=== PATIENT | female | born 1965 | race Caucasian/White ===

== ENCOUNTER 2017-05-17 10:43 | Day surgery (SDC) | payer OTHER ==
[2017-05-17] MEDS ORDERED: XYLOCAINE 1 % (PLAIN) ONE (11:52)
[2017-05-17] MEDS ORDERED: KENALOG INJ 40 MG ONE (11:53)
[2017-05-17] MEDS ORDERED: CELESTONE SOLUSPAN ONE (11:53)
[2017-05-17 13:16] VITALS: BP 121/80
== END 2017-05-17 13:10 | disposition home or self-care (01) ==
LOC: SURG1 10:43
PROVIDERS: ATTEND Orthopaedic Surgery
PROC: 3E0U3BZ Introduction of Anesthetic Agent into Joints, Percutaneous Approach (ICD-10-PCS; principal; 2017-05-17 11:00)
DX: M25.551 Pain in right hip (principal); M16.11 Unilateral primary osteoarthritis, right hip
CPT/HCPCS: 20610; 76000; 77002; J2001; J3301

== ENCOUNTER → 2017-06-20 | Outpatient (CLI) | payer OTHER ==
--- NOTE | 2017-06-22 12:57 | RAD ---
HISTORY: Preoperative exam for hip replacement Study: Two views of the chest Comparison: None Findings: The patient is rotated. The cardiac silhouette is unremarkable. Interstitial changes are noted with out evidence of focal consolidation. Postoperative changes of the cervical spine are noted. IMPRESSION: 1. No acute cardiopulmonary disease. Reported By:
--- NOTE | 2017-06-22 13:39 | RAD ---
HISTORY: Preop for right hip replacement. Study: Two views of the right hip. Comparison: None. 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 Patient is status post ORIF of a remote left femur fracture with associated marisol te and screw fixation. The visualized hardware appears intact. Remaining osseous structures appear in tact. Vascular coils are seen overlying the pelvis. Partially visualized screws overlying the right m id femur. IMPRESSION: Chronic findings as above. Reported By:
== END ==
LOC: LAB 13:47
PROVIDERS: ATTEND Orthopaedic Surgery
DX: Z01.818 Encounter for other preprocedural examination (principal); Z01.810 Encounter for preprocedural cardiovascular examination; Z01.811 Encounter for preprocedural respiratory examination; Z79.899 Other long term (current) drug therapy; Z11.8 Encounter for screening for other infectious and parasitic diseases; Z79.01 Long term (current) use of anticoagulants; M16.31 Unilateral osteoarthritis resulting from hip dysplasia, right hip
CPT/HCPCS: 71020; 73501; 93005; 93010

== ENCOUNTER → 2017-06-21 | Outpatient (CLI) | payer OTHER | LOC: LAB 15:48 | PROVIDERS: ATTEND Orthopaedic Surgery | DX: Z01.818 Encounter for other preprocedural examination (principal); Z79.899 Other long term (current) drug therapy; Z11.8 Encounter for screening for other infectious and parasitic diseases; Z79.01 Long term (current) use of anticoagulants; M16.31 Unilateral osteoarthritis resulting from hip dysplasia, right hip | CPT/HCPCS: 36415; 80053; 81001; 85025; 85610; 85652; 85730; 86140; 86850; 86900; 86901; 87640; 87641 ==

== ENCOUNTER 2017-06-26 09:00 | Inpatient (IN) | payer OTHER ==
[2017-06-21 16:24] LABS: BILIRUBIN,URINE NEGATIVE (NEGATIVE); BLOOD/HEMOGLOBIN,URINE NEGATIVE (NEGATIVE); GLUCOSE, URINE NEGATIVE (NEGATIVE); KETONES,URINE NEGATIVE (NEGATIVE); LEUKOCYTE ESTERASE ,URINE 1+ (NEGATIVE); NITRITES,URINE NEGATIVE (NEGATIVE); PROTEIN,URINE NEGATIVE (NEGATIVE); UROBILINOGEN,URINE 1+ (NORMAL)
[2017-06-21 16:27] LABS: BASOPHILS % (AUTO) 0.5 % (0.2-1.0); EOSINOPHILS # (AUTO) 0.1 x10^3/uL (0.0-0.2); EOSINOPHILS % (AUTO) 1.1 % (0.9-2.9); HEMATOCRIT 39.6 % (36.0-47.0); HEMOGLOBIN 14.1 g/dL (12.0-16.0); LYMPHOCYTES # (AUTO) 1.3 X10^3/uL (1.3-2.9); LYMPHOCYTES % (AUTO) 28.8 % (21.0-51.0); MEAN CORPUSCULAR HEMOGLOBIN 30.8 pg (27.0-34.0); MEAN CORPUSCULAR HGB CONC 35.7 g/dL (33.0-35.0); MEAN CORPUSCULAR VOLUME 86.2 fL (80.0-100.0); MEAN PLATELET VOLUME 7.8 fL (7.4-11.0); MONOCYTES # (AUTO) 0.3 x10^3/uL (0.3-0.8); MONOCYTES % (AUTO) 6.4 % (0.0-13.0); NEUTROPHILS # (AUTO) 2.9 x10^3/uL (2.2-4.8); NEUTROPHILS % (AUTO) 63.2 % (42.0-75.0); PLATELET COUNT 254 X10^3/uL (150.0-450.0); RED CELL DISTRIBUTION WIDTH 12.8 % (11.6-16.5); WHITE BLOOD COUNT 4.6 X10^3/uL (3.6-10.0)
[2017-06-21 16:32] LABS: APPEARANCE,URINE HAZY (CLEAR); BACTERIA,URINE TRACE /HPF (NEGATIVE); COLOR,URINE YELLOW (YELLOW); RBC,URINE 0-2 /HPF (NEGATIVE); SQUAMOUS EPITHELIAL CELL,UR RARE /HPF (NEGATIVE)
[2017-06-21 16:34] LABS: MUCUS,URINE FEW /HPF (NEGATIVE)
[2017-06-21 16:39] LABS: ALANINE AMINOTRANSFERASE 41 Units/L (12-78); ALKALINE PHOSPHATASE 196 Units/L (46-116); ASPARTATE AMINO TRANSFERASE 38 Units/L (15-37); BLOOD UREA NITROGEN 11 mg/dL (7-18); CALCIUM 9.3 mg/dL (8.5-10.1); CARBON DIOXIDE 28.8 mmol/L (21-32); CHLORIDE 104 mmol/L (98-107); CREATININE 0.77 mg/dL (0.55-1.02); SODIUM 141 mmol/L (136-145); eGFR BLACK RACES > 60 (>60); eGFR NON BLACK RACES > 60 (>60)
[2017-06-21 17:08] LABS: ERYTHROCYTE SEDIMENTATION RATE 20 MM/HOUR (0-20)
[2017-06-26] MEDS ORDERED: D5 LR 1000 ML 1,000 ML IV ONE (10:42)
[2017-06-26] MEDS ORDERED: XYLOCAINE 2% and EPINEPHRINE 1:100,000 ONE (11:16)
[2017-06-26] MEDS ORDERED: CLEOCIN VIAL 600 MG ONE (11:31)
[2017-06-26] MEDS ORDERED: NS 100 ML IV 100 ML IV ONE (11:31)
[2017-06-26] MEDS ORDERED: FENTANYL INJ 100 mcg ONE (11:35)
[2017-06-26] MEDS: HYDROGEN PEROXIDE 3% ONE ×2 (11:39→18:27)
[2017-06-26] MEDS ORDERED: LR 1000 ML IV 1,000 ML IV ONE ×2 (11:54→12:13)
[2017-06-26] MEDS ORDERED: BACTROBAN OINT ONE (12:14)
--- NOTE | 2017-06-26 14:09 | RAD ---
Indication: Right hip replacement. Exam: AP pelvis and right hip. Comparison: 06/20/2017. Findings: The right femoral head has been surgically resected and there is a prosthetic device in the right hip with the acetabular portion of the prosthesis in good position. There are surgical fixatio n devices along the midshaft of the right femur and proximal left femoral shaft . There is flattening deformity of left femoral head which is unchanged. There are surgical embolization coils in the pelv is which are unchanged. Impression: Status post total right hip replacement with no acute abnormality seen. Postop changes along both femurs and congenital deformity of the left hip. Extensive embolization coils throughout the pelvis which are unchanged. Reported By:
[2017-06-26] MEDS ORDERED: MARCAINE 0.25% INJ ONE (14:24)
[2017-06-26] MEDS ORDERED: NEO-SYNEPHRINE INJ ONE ×2 (14:47→17:22)
[2017-06-26] MEDS ORDERED: DIPRIVAN VIAL ONE (14:47)
[2017-06-26] MEDS ORDERED: VERSED ONE (14:47)
[2017-06-26] MEDS ORDERED: EPHEDRINE SULFATE INJ ONE (14:47)
[2017-06-26] MEDS: NS 500 ML IV 500 ML IV ONE (14:51)
[2017-06-26] MEDS ORDERED: NS IRRIGATION IR ONE ×2 (15:00)
[2017-06-26] MEDS ORDERED: BACITRACIN IR ONE ×2 (15:00)
[2017-06-26] MEDS ORDERED: DIPRIVAN VIAL 20 ML ONE (15:43)
[2017-06-26] MEDS ORDERED: MORPHINE SULFATE PCA 30 MG IV PRN (16:43)
[2017-06-26] MEDS ORDERED: BENADRYL INJ 50 MG VIAL IVP PRN (16:54)
[2017-06-26] MEDS ORDERED: ZOFRAN INJ 4 MG VIAL IVP PRN (16:54)
[2017-06-26] MEDS ORDERED: DILAUDID INJ IVP PRN (16:54)
[2017-06-26] MEDS ORDERED: REGLAN INJ 10 MG VIAL IVP PRN (16:54)
[2017-06-26] MEDS ORDERED: NS 500 ML IV 500 ML IV ONE (17:22)
[2017-06-26 17:25] LABS: HEMATOCRIT 34.7 % (36.0-47.0); HEMOGLOBIN 12.1 g/dL (12.0-16.0)
--- NOTE | 2017-06-26 18:11 | RAD ---
History: Postop right hip Study: AP and cross-table lateral right hip Comparison: June 20 Findings: There is a new right hip prosthesis is well seated in good position. There are subcutaneous jah in place laterally. There is a surgical drain in place. Partially visualized is a mid right femoral diaphyseal sideplate and screws. There is an incomplete f racture just above the side-plate and distal to the stem of the right hip prosthesis. Impression: 1. Satisfactory appearance of the right total hip prosthesis 2. Incomplete fracture of the femoral diaphysis below the stem of the prosthesis and immediately abov e a sideplate and screws in the femoral diaphysis Reported By:
[2017-06-26] MEDS: NEO-SYNEPHRINE INJ 30 MG in NS 500 ML IV 500 ML IV PRN (18:12)
[2017-06-26] MEDS: LR 1000 ML IV 1,000 ML IV SCH (18:27)
[2017-06-26] MEDS: DILAUDID INJ IVP PRN (19:35)
[2017-06-26] MEDS: VANCOMYCIN HCL 500 MG VIAL 500 MG in NS 100 ML IV + SPIKE MINIBAG* 100 ML IV SCH (20:08)
[2017-06-27] MEDS: DILAUDID INJ IVP PRN ×5 (01:20→22:06)
[2017-06-27] MEDS: ZOFRAN INJ 4 MG VIAL IVP PRN (04:55)
[2017-06-27 05:22] LABS: BASOPHILS % (AUTO) 0.2 % (0.2-1.0); HEMATOCRIT 29.5 % (36.0-47.0); HEMOGLOBIN 10.7 g/dL (12.0-16.0); LYMPHOCYTES # (AUTO) 1.4 X10^3/uL (1.3-2.9); LYMPHOCYTES % (AUTO) 12.8 % (21.0-51.0); MEAN CORPUSCULAR HEMOGLOBIN 30.6 pg (27.0-34.0); MEAN CORPUSCULAR HGB CONC 36.2 g/dL (33.0-35.0); MEAN CORPUSCULAR VOLUME 84.5 fL (80.0-100.0); MEAN PLATELET VOLUME 7.9 fL (7.4-11.0); MONOCYTES # (AUTO) 0.9 x10^3/uL (0.3-0.8); MONOCYTES % (AUTO) 8.3 % (0.0-13.0); NEUTROPHILS # (AUTO) 8.8 x10^3/uL (2.2-4.8); NEUTROPHILS % (AUTO) 78.7 % (42.0-75.0); PLATELET COUNT 239 X10^3/uL (150.0-450.0); RED BLOOD COUNT 3.49 X10^6/uL (3.5-5.4); RED CELL DISTRIBUTION WIDTH 14.4 % (11.6-16.5); WHITE BLOOD COUNT 11.2 X10^3/uL (3.6-10.0)
[2017-06-27 05:26] LABS: BLOOD UREA NITROGEN 8 mg/dL (7-18); CALCIUM 8.2 mg/dL (8.5-10.1); CARBON DIOXIDE 28.1 mmol/L (21-32); CHLORIDE 106 mmol/L (98-107); COR NA(FOR HYPERGLY) 140 mmol/L (136-145); CREATININE 0.68 mg/dL (0.55-1.02); SODIUM 139 mmol/L (136-145); eGFR BLACK RACES > 60 (>60); eGFR NON BLACK RACES > 60 (>60)
[2017-06-27] MEDS: LR 1000 ML IV 1,000 ML IV SCH ×3 (06:41→21:19)
[2017-06-27] MEDS: NEO-SYNEPHRINE INJ 30 MG in NS 500 ML IV 500 ML IV PRN (06:42)
--- NOTE | 2017-06-27 08:25 | PCM.PROG ---
Progress Note - Progress Note for Day of Date: 06/27/17 - Subjective Subjective: IS A 52 YEAR OLD PATIENT OF . SHE IS STATUS POST RIGHT TOTAL HIP. SURGERY WAS DONE YESTERDAY. WE WERE CONSULTED FOR MEDICAL CARE. TODAY, SHE IS ALERT AND ORIENTED, LYING IN BED ON MORNING ROUNDS. SHE IS NOTED WITH COMPLAINTS OF RIGHT HIP PAIN. SURGICAL DRESSING TO RIGHT HIP IS NOTED DRY AND INTACT. NO SIGNS/SX INFECTION NOTED TO SITE. PATIENT HAS WEDGE NOTED IN BETWEEN LEGS FOR PROPER ALIGNMENT. PATIENTS BLOOD PRESSURE WAS 80S/ 50S YESTERDAY AFTER SURGERY. SHE WAS PLACED ON A KAYLYN-SYNEPHRINE DRIP AND PLACED IN THE INTENSIVE CARE UNIT FOR CLOSE MONITORING. TODAY, SHE CONTINUES ON THE DRIP AT 60.36 ML/HR (60MCG/MIN). LUNGS ARE NOTED CLEAR TO AUSCULTATION. ABDOMEN IS SOFT, ROUND, AND NON-TENDER WITH NORMAL BOWEL SOUNDS NOTED IN ALL QUADRANTS. HER VITAL SIGNS THIS MORNING ARE 99.9-768-76-100%-108/60. A CBC AND BMP WERE OBTAINED. ABNORMAL LAB VALUES INCLUDE THE FOLLOWING: WBC 11.2, RBC 3.49, HGB 10.7, HCT 29.5, GLUCOSE 143, CALCIUM 8.2. POST-OP HIP XRAY FROM YESTERDAY REPORTED SATISFACTORY APPEARANCE OF THE RIGHT TOTAL HIP PROSTHESIS, AND INCOMPLETE FRACTURE OF THE FEMORAL DIAPHYSIS BELOW THE STEM OF THE PROSTHESIS AND IMMEDIATELY ABOVE A SIDEPLATE AND SCREWS IN THE FEMORAL DIAPHYSIS. PATIENT REQUEST MEDICATIONS TO PRODUCE A BOWEL MOVEMENT. TODAY, WE WILL START A BOWEL REGIMEN AND WEAN OFF OF DRIP BLOOD PRESSURE IMPROVES. OTHERWISE, WE WILL FOLLOW UP WITH AM LABS AND CONTINUE TO MONITOR PATIENT. - Past Medical Family Social History Past Med/Fam/Surg Hx: No changes since H&P Allergies: Allergies cefazolin [From Ancef] Allergy (Verified 06/26/17 11:15) ciprofloxacin [From Cipro] Allergy (Verified 06/26/17 11:15) levofloxacin [From Levaquin] Allergy (Verified 05/17/17 12:07) bupropion [From Wellbutrin] Adverse Reaction (Verified 05/17/17 12:07) morphine Adverse Reaction (Verified 05/17/17 12:07) promethazine [From Phenergan] Adverse Reaction (Verified 05/17/17 12:07) - Review of Systems ROS: No change since H&P - Vital Signs and I&O's Vital Signs: Temperature 99.3 F Pulse Rate [Apical] 102 Pulse Rate 111 Respiratory Rate 15 Blood Pressure [Right Arm] 113/64 Blood Pressure 133/59 O2 Sat by Pulse Oximetry 100 Intake and Output: Intake & Output 06/24/17 06/25/17 06/26/17 06/27/17 11:59 11:59 11:59 11:59 Intake Total 2527 Output Total 3090 Balance -563 - Physical Exam Oriented: Normal Eyes: Normal Ear: Normal Nose: Normal Throat: Normal Respiratory: Normal Cardiovascular: Normal : Normal Auscultation: Bowel Sounds: Normal Palpation: Normal Tenderness: Normal Skin: Wound (SURGICAL WOUND WITH NO S/SX INFECTION NOTED ) Musculoskeletal: Right, Hip, Tender, Instability Psychiatric: Normal Mood Description: Calm Affect: Normal Speech Pattern: Clear, Appropriate - Laboratory and Diagnostics Result Diagrams: 06/27/17 04:40 06/27/17 04:40 Labs: Laboratory WBC 11.2 X10^3/uL (3.6-10.0) H 06/27/17 04:40 RBC 3.49 X10^6/uL (3.5-5.4) L 06/27/17 04:40 Hgb 10.7 g/dL (12.0-16.0) L 06/27/17 04:40 Hct 29.5 % (36.0-47.0) L 06/27/17 04:40 MCV 84.5 fL (80.0-100.0) 06/27/17 04:40 MCH 30.6 pg (27.0-34.0) 06/27/17 04:40 MCHC 36.2 g/dL (33.0-35.0) H 06/27/17 04:40 RDW 14.4 % (11.6-16.5) 06/27/17 04:40 Plt Count 239 X10^3/uL (150.0-450.0) 06/27/17 04:40 MPV 7.9 fL (7.4-11.0) 06/27/17 04:40 Neut % 78.7 % (42.0-75.0) H 06/27/17 04:40 Lymph % 12.8 % (21.0-51.0) L 06/27/17 04:40 [place] % 8.3 % (0.0-13.0) 06/27/17 04:40 Eos % 0.0 % (0.9-2.9) L 06/27/17 04:40 Baso % 0.2 % (0.2-1.0) 06/27/17 04:40 Neut # 8.8 x10^3/uL (2.2-4.8) H 06/27/17 04:40 Lymph # 1.4 X10^3/uL (1.3-2.9) 06/27/17 04:40 [place] # 0.9 x10^3/uL (0.3-0.8) H 06/27/17 04:40 Eos # 0.0 x10^3/uL (0.0-0.2) 06/27/17 04:40 Baso # 0.0 X10^3/uL (0.0-0.1) 06/27/17 04:40 Absolute Nucleated RBC 0.0 /100WBC 06/27/17 04:40 ESR 20 MM/HOUR (0-20) 06/21/17 16:05 INR Target Range - 06/21/17 16:05 INR 0.99 (0.8-1.3) 06/21/17 16:05 PTT 31.6 SECONDS (22.9-36.5) 06/21/17 16:05 PTT Comment - 06/21/17 16:05 Sodium 139 mmol/L (136-145) 06/27/17 04:40 Corrected Sodium 140 mmol/L (136-145) 06/27/17 04:40 Potassium 3.6 mmol/L (3.5-5.1) 06/27/17 04:40 Chloride 106 mmol/L (98-107) 06/27/17 04:40 Carbon Dioxide 28.1 mmol/L (21-32) 06/27/17 04:40 BUN 8 mg/dL (7-18) 06/27/17 04:40 Creatinine 0.68 mg/dL (0.55-1.02) 06/27/17 04:40 Est GFR (MDRD) Af Amer > 60 (>60) 06/27/17 04:40 Est GFR (MDRD) Non-Af > 60 (>60) 06/27/17 04:40 Glucose 143 mg/dL (65-99) H 06/27/17 04:40 Calcium 8.2 mg/dL (8.5-10.1) L 06/27/17 04:40 Corrected Calcium TNP 06/21/17 16:05 Total Bilirubin 0.50 mg/dL (0.2-1.0) 06/21/17 16:05 AST 38 Units/L (15-37) H 06/21/17 16:05 ALT 41 Units/L (12-78) 06/21/17 16:05 Alkaline Phosphatase 196 Units/L (46-116) H 06/21/17 16:05 C-Reactive Protein 1.40 mg/L (0-3.0) 06/21/17 16:05 Total Protein 8.0 g/dL (6.4-8.2) 06/21/17 16:05 Albumin 4.0 g/dL (3.4-5.0) 06/21/17 16:05 Globulin 4.0 g/dL (2.5-4.5) 06/21/17 16:05 Albumin/Globulin Ratio 1.0 Ratio (1.1-2.1) L 06/21/17 16:05 Specimen Type Clean catch urine 06/21/17 16:05 Urine Color Yellow (YELLOW) 06/21/17 16:05 Urine Appearance Hazy (CLEAR) 06/21/17 16:05 Urine pH 5.0 (5.0 - 8.0) 06/21/17 16:05 Ur Specific [place] 1.025 (1.000-1.030) 06/21/17 16:05 Urine Protein Negative (NEGATIVE) 06/21/17 16:05 Urine Glucose (UA) Negative (NEGATIVE) 06/21/17 16:05 Urine Ketones Negative (NEGATIVE) 06/21/17 16:05 Urine Occult Blood Negative (NEGATIVE) 06/21/17 16:05 Urine Nitrite Negative (NEGATIVE) 06/21/17 16:05 Urine Bilirubin Negative (NEGATIVE) 06/21/17 16:05 Urine Urobilinogen 1+ (NORMAL) 06/21/17 16:05 Ur Leukocyte Esterase 1+ (NEGATIVE) 06/21/17 16:05 Urine RBC 0-2 /HPF (NEGATIVE) 06/21/17 16:05 Urine WBC 3-5 /HPF (NEGATIVE) 06/21/17 16:05 Ur Squamous Epith Cells Rare /HPF (NEGATIVE) 06/21/17 16:05 Urine Bacteria Trace /HPF (NEGATIVE) 06/21/17 16:05 Urine Mucus Few /HPF (NEGATIVE) 06/21/17 16:05 Ur Culture Indicated? No/not indicated 06/21/17 16:05 Staph aureus (PCR) Negative (NEGATIVE) 06/21/17 16:05 MRSA (PCR) Negative (NEGATIVE) 06/21/17 16:05 Blood Type O POSITIVE 06/21/17 16:05 Antibody Screen Negative 06/21/17 16:05 Crossmatch See Detail 06/21/17 16:05 - Plan (1) Status post total hip replacement, right Status: Acute Plan: PT/OT, DILAUDID 1-2MG IV Q4H PRN, ON Q PUMP, CONTINUE TO MONITOR (2) Hypotension Status: Acute Qualifiers: Hypotension type: postprocedural hypotension Qualified Code(s): I95.81 - Postprocedural hypotension Plan: PHENYLEPHRINE DRIP, CONTINUE TO MONITOR
[2017-06-27] MEDS: VANCOMYCIN HCL 500 MG VIAL 500 MG in NS 100 ML IV + SPIKE MINIBAG* 100 ML IV SCH (08:35)
[2017-06-27] MEDS: MARCAINE 0.5% 52 ML, NS 1000 ML 348 ML EPI SCH ×4 (09:00→11:39)
[2017-06-27] MEDS ORDERED: Q PUMP EPI SCH (09:00)
[2017-06-27] MEDS: COLACE CAP 100 MG PO SCH ×2 (10:17→21:18)
[2017-06-27] MEDS: MILK OF MAGNESIA PO SCH ×4 (11:37→21:19)
[2017-06-27] MEDS ORDERED: PERCOCET TAB 5/325 MG ONE (14:20)
[2017-06-27] MEDS: PERCOCET TAB 5/325 MG PO PRN ×2 (14:21→19:28)
[2017-06-27] MEDS ORDERED: TYLENOL 325 MG TAB PO ONE ×2 (15:57→16:01)
[2017-06-27] MEDS ORDERED: BENADRYL INJ 50 MG VIAL ONE (15:57)
[2017-06-27] MEDS ORDERED: NS 500 ML IV 500 ML IV ONE (16:06)
[2017-06-27] MEDS: NS 500 ML IV 500 ML IV ONE (16:10)
--- NOTE | 2017-06-27 18:38 | PCM.PROG ---
Progress Note - Subjective Subjective: she is postop day 1. She is in the ICU for maintenance of our hypertension. She still has an epidural catheter.er. Has been having issues with some pain management. She is allergic to morphine. She had an Intra-Op complication of periprosthetic fracture. Cable was appliedproximally. CT reveals that there is distal fracture. she is currently nonweightbearing with his posterior hip precautions. She is being gradually weaned off inotropes. - Past Medical Family Social History Past Med/Fam/Surg Hx: No changes since H&P Allergies: Allergies cefazolin [From Ancef] Allergy (Verified 06/26/17 11:15) ciprofloxacin [From Cipro] Allergy (Verified 06/26/17 11:15) levofloxacin [From Levaquin] Allergy (Verified 05/17/17 12:07) bupropion [From Wellbutrin] Adverse Reaction (Verified 05/17/17 12:07) morphine Adverse Reaction (Verified 05/17/17 12:07) promethazine [From Phenergan] Adverse Reaction (Verified 05/17/17 12:07) - Review of Systems ROS: No change since H&P - Vital Signs and I&O's Vital Signs: Temperature 100 F Pulse Rate [Apical] 106 Pulse Rate 111 Respiratory Rate 21 Blood Pressure [Right Arm] 125/60 Blood Pressure 133/59 O2 Sat by Pulse Oximetry 99 Intake and Output: Intake & Output 06/25/17 06/26/17 06/27/17 06/28/17 11:59 11:59 11:59 11:59 Intake Total 3015 1400 Output Total 3690 600 Balance -675 800 - Physical Exam Oriented: Normal Eyes: Normal Ear: Normal Nose: Normal Throat: Normal Respiratory: Normal Cardiovascular: Normal : Normal Auscultation: Bowel Sounds: Normal Tenderness: Normal Skin: Wound (SURGICAL WOUND WITH NO S/SX INFECTION NOTED ) Musculoskeletal: Right, Hip, Tender, Instability Psychiatric: Normal Mood Description: Calm Affect: Normal Speech Pattern: Clear, Appropriate - Laboratory and Diagnostics Result Diagrams: 06/27/17 04:40 06/27/17 04:40 Labs: Laboratory WBC 11.2 X10^3/uL (3.6-10.0) H 06/27/17 04:40 RBC 3.49 X10^6/uL (3.5-5.4) L 06/27/17 04:40 Hgb 10.7 g/dL (12.0-16.0) L 06/27/17 04:40 Hct 29.5 % (36.0-47.0) L 06/27/17 04:40 MCV 84.5 fL (80.0-100.0) 06/27/17 04:40 MCH 30.6 pg (27.0-34.0) 06/27/17 04:40 MCHC 36.2 g/dL (33.0-35.0) H 06/27/17 04:40 RDW 14.4 % (11.6-16.5) 06/27/17 04:40 Plt Count 239 X10^3/uL (150.0-450.0) 06/27/17 04:40 MPV 7.9 fL (7.4-11.0) 06/27/17 04:40 Neut % 78.7 % (42.0-75.0) H 06/27/17 04:40 Lymph % 12.8 % (21.0-51.0) L 06/27/17 04:40 [place] % 8.3 % (0.0-13.0) 06/27/17 04:40 Eos % 0.0 % (0.9-2.9) L 06/27/17 04:40 Baso % 0.2 % (0.2-1.0) 06/27/17 04:40 Neut # 8.8 x10^3/uL (2.2-4.8) H 06/27/17 04:40 Lymph # 1.4 X10^3/uL (1.3-2.9) 06/27/17 04:40 [place] # 0.9 x10^3/uL (0.3-0.8) H 06/27/17 04:40 Eos # 0.0 x10^3/uL (0.0-0.2) 06/27/17 04:40 Baso # 0.0 X10^3/uL (0.0-0.1) 06/27/17 04:40 Absolute Nucleated RBC 0.0 /100WBC 06/27/17 04:40 ESR 20 MM/HOUR (0-20) 06/21/17 16:05 INR Target Range - 06/21/17 16:05 INR 0.99 (0.8-1.3) 06/21/17 16:05 PTT 31.6 SECONDS (22.9-36.5) 06/21/17 16:05 PTT Comment - 06/21/17 16:05 Sodium 139 mmol/L (136-145) 06/27/17 04:40 Corrected Sodium 140 mmol/L (136-145) 06/27/17 04:40 Potassium 3.6 mmol/L (3.5-5.1) 06/27/17 04:40 Chloride 106 mmol/L (98-107) 06/27/17 04:40 Carbon Dioxide 28.1 mmol/L (21-32) 06/27/17 04:40 BUN 8 mg/dL (7-18) 06/27/17 04:40 Creatinine 0.68 mg/dL (0.55-1.02) 06/27/17 04:40 Est GFR (MDRD) Af Amer > 60 (>60) 06/27/17 04:40 Est GFR (MDRD) Non-Af > 60 (>60) 06/27/17 04:40 Glucose 143 mg/dL (65-99) H 06/27/17 04:40 Calcium 8.2 mg/dL (8.5-10.1) L 06/27/17 04:40 Corrected Calcium TNP 06/21/17 16:05 Total Bilirubin 0.50 mg/dL (0.2-1.0) 06/21/17 16:05 AST 38 Units/L (15-37) H 06/21/17 16:05 ALT 41 Units/L (12-78) 06/21/17 16:05 Alkaline Phosphatase 196 Units/L (46-116) H 06/21/17 16:05 C-Reactive Protein 1.40 mg/L (0-3.0) 06/21/17 16:05 Total Protein 8.0 g/dL (6.4-8.2) 06/21/17 16:05 Albumin 4.0 g/dL (3.4-5.0) 06/21/17 16:05 Globulin 4.0 g/dL (2.5-4.5) 06/21/17 16:05 Albumin/Globulin Ratio 1.0 Ratio (1.1-2.1) L 06/21/17 16:05 Specimen Type Clean catch urine 06/21/17 16:05 Urine Color Yellow (YELLOW) 06/21/17 16:05 Urine Appearance Hazy (CLEAR) 06/21/17 16:05 Urine pH 5.0 (5.0 - 8.0) 06/21/17 16:05 Ur Specific [place] 1.025 (1.000-1.030) 06/21/17 16:05 Urine Protein Negative (NEGATIVE) 06/21/17 16:05 Urine Glucose (UA) Negative (NEGATIVE) 06/21/17 16:05 Urine Ketones Negative (NEGATIVE) 06/21/17 16:05 Urine Occult Blood Negative (NEGATIVE) 06/21/17 16:05 Urine Nitrite Negative (NEGATIVE) 06/21/17 16:05 Urine Bilirubin Negative (NEGATIVE) 06/21/17 16:05 Urine Urobilinogen 1+ (NORMAL) 06/21/17 16:05 Ur Leukocyte Esterase 1+ (NEGATIVE) 06/21/17 16:05 Urine RBC 0-2 /HPF (NEGATIVE) 06/21/17 16:05 Urine WBC 3-5 /HPF (NEGATIVE) 06/21/17 16:05 Ur Squamous Epith Cells Rare /HPF (NEGATIVE) 06/21/17 16:05 Urine Bacteria Trace /HPF (NEGATIVE) 06/21/17 16:05 Urine Mucus Few /HPF (NEGATIVE) 06/21/17 16:05 Ur Culture Indicated? No/not indicated 06/21/17 16:05 Staph aureus (PCR) Negative (NEGATIVE) 06/21/17 16:05 MRSA (PCR) Negative (NEGATIVE) 06/21/17 16:05 Blood Type O POSITIVE 06/21/17 16:05 Antibody Screen Negative 06/21/17 16:05 Crossmatch See Detail 06/21/17 16:05 - Plan (1) Linda-prosthetic femur fracture at tip of prosthesis Status: Acute Plan: discussed with her that she has a periprosthetic fracture treated. We will go ahead with a cable wire and cortical strut. We'll do the surgery given the cortical strut is available.
[2017-06-27] MEDS: MIRALAX POWDER (1 DOSE 17GM) PO SCH (21:18)
[2017-06-27] MEDS: SOMA TAB 350 MG PO SCH (21:18)
[2017-06-27] MEDS: LOVENOX INJ 30 MG SYR SC SCH (21:18)
[2017-06-28] MEDS: PERCOCET TAB 5/325 MG PO PRN ×4 (02:28→20:56)
[2017-06-28 05:17] LABS: BASOPHILS % (AUTO) 0.3 % (0.2-1.0); EOSINOPHILS # (AUTO) 0.1 x10^3/uL (0.0-0.2); EOSINOPHILS % (AUTO) 0.7 % (0.9-2.9); HEMATOCRIT 25.8 % (36.0-47.0); HEMOGLOBIN 9.4 g/dL (12.0-16.0); LYMPHOCYTES # (AUTO) 1.1 X10^3/uL (1.3-2.9); LYMPHOCYTES % (AUTO) 14.9 % (21.0-51.0); MEAN CORPUSCULAR HEMOGLOBIN 30.5 pg (27.0-34.0); MEAN CORPUSCULAR HGB CONC 36.2 g/dL (33.0-35.0); MEAN CORPUSCULAR VOLUME 84.3 fL (80.0-100.0); MEAN PLATELET VOLUME 7.7 fL (7.4-11.0); MONOCYTES # (AUTO) 0.5 x10^3/uL (0.3-0.8); MONOCYTES % (AUTO) 6.2 % (0.0-13.0); NEUTROPHILS % (AUTO) 77.9 % (42.0-75.0); PLATELET COUNT 121 X10^3/uL (150.0-450.0); RED BLOOD COUNT 3.07 X10^6/uL (3.5-5.4); RED CELL DISTRIBUTION WIDTH 14.5 % (11.6-16.5); WHITE BLOOD COUNT 7.7 X10^3/uL (3.6-10.0)
[2017-06-28 05:26] LABS: BLOOD UREA NITROGEN 5 mg/dL (7-18); CALCIUM 8.5 mg/dL (8.5-10.1); CARBON DIOXIDE 30.8 mmol/L (21-32); CHLORIDE 104 mmol/L (98-107); COR NA(FOR HYPERGLY) 137 mmol/L (136-145); CREATININE 0.56 mg/dL (0.55-1.02); SODIUM 136 mmol/L (136-145); eGFR BLACK RACES > 60 (>60); eGFR NON BLACK RACES > 60 (>60)
[2017-06-28] MEDS ORDERED: MAGNESIUM SULFATE 1 GM/100 mL PREMIX 1 GM/100 ML BAG IV PRN (07:09)
[2017-06-28] MEDS ORDERED: MAG-OX TAB PO PRN (07:09)
[2017-06-28] MEDS: MILK OF MAGNESIA PO SCH ×5 (09:36→20:58)
[2017-06-28] MEDS: COLACE CAP 100 MG PO SCH ×2 (09:36→20:58)
[2017-06-28] MEDS: K-RIDER 10 MEQ/NS 100 ML 10 MEQ/100 ML BAG IV PRN ×4 (09:37→17:00)
[2017-06-28] MEDS: SOMA TAB 350 MG PO SCH ×2 (09:37→20:57)
--- NOTE | 2017-06-28 11:29 | PCM.PROG ---
Progress Note - Progress Note for Day of Date: 06/28/17 - Subjective Subjective: IS A 52 YEAR OLD PATIENT OF . SHE IS STATUS POST RIGHT TOTAL HIP. WE WERE CONSULTED FOR MEDICAL CARE. TODAY, SHE IS ALERT AND ORIENTED, LYING IN BED ON MORNING ROUNDS. SHE CONTINUES WITH COMPLAINTS OF RIGHT HIP PAIN. SURGICAL DRESSING TO RIGHT HIP IS NOTED DRY AND INTACT. NO SIGNS /SX INFECTION NOTED TO SITE. PATIENT HAS WEDGE NOTED IN BETWEEN LEGS FOR PROPER ALIGNMENT. PATIENT HAS BEEN WEANED OFF OF KAYLYN-SYNEPHRINE DRIP AND BLOOD PRESSURE REMAINS STABLE. ON EXAMINATION, LUNGS ARE NOTED CLEAR TO AUSCULTATION. ABDOMEN IS SOFT, ROUND, AND NON-TENDER WITH NORMAL BOWEL SOUNDS NOTED IN ALL QUADRANTS. HER VITAL SIGNS THIS MORNING ARE 99.1-175-31-100%-111/65. A CBC AND BMP WERE OBTAINED. ABNORMAL LAB VALUES INCLUDE THE FOLLOWING: RBC 3.07, HGB 9.4 , HCT 25.8, POTASSIUM 3.3, BUN 5, GLUCOSE 131, MAGNESIUM 1.4. POST-OP HIP XRAY REPORTED SATISFACTORY APPEARANCE OF THE RIGHT TOTAL HIP PROSTHESIS, AND INCOMPLETE FRACTURE OF THE FEMORAL DIAPHYSIS BELOW THE STEM OF THE PROSTHESIS AND IMMEDIATELY ABOVE A SIDEPLATE AND SCREWS IN THE FEMORAL DIAPHYSIS. DR. MCKEON ORDERED A CT. CT WAS OBTAINED AND REPORTED MINIMALLY DISPLACED PERIPROSTHETIC FRACTURE INVOLVING THE PROXIMAL 3RD OF THE FEMUR STATUS POST RECENT TOTAL HIP ARTHROPLASTY. PATIENT REMAINS NON-WEIGHT BEARING. PLANS TO TAKE PATIENT BACK TO SURGERY ON MONDAY FOR REPAIR OF FRACTURE. PATIENT RECEIVED 1 UNIT PRBC YESTERDAY PER ORDERS OF . TODAY, WE WILL CONTINUE WITH CURRENT PLAN OF CARE. PHYSICAL THERAPY WILL CONTINUE TO WORK WITH PATIENT. OTHERWISE, WE WILL FOLLOW UP WITH AM LABS AND CONTINUE TO MONITOR PATIENT. - Past Medical Family Social History Past Med/Fam/Surg Hx: No changes since H&P Allergies: Allergies cefazolin [From Ancef] Allergy (Verified 06/26/17 11:15) ciprofloxacin [From Cipro] Allergy (Verified 06/26/17 11:15) levofloxacin [From Levaquin] Allergy (Verified 05/17/17 12:07) bupropion [From Wellbutrin] Adverse Reaction (Verified 05/17/17 12:07) morphine Adverse Reaction (Verified 05/17/17 12:07) promethazine [From Phenergan] Adverse Reaction (Verified 05/17/17 12:07) - Review of Systems ROS: No change since H&P - Vital Signs and I&O's Vital Signs: Temperature 99.6 F Pulse Rate [Apical] 116 Pulse Rate 111 Respiratory Rate 12 Blood Pressure [Right Arm] 111/65 Blood Pressure 133/59 O2 Sat by Pulse Oximetry 100 Intake and Output: Intake & Output 06/25/17 06/26/17 06/27/17 06/28/17 11:59 11:59 11:59 11:59 Intake Total 3015 3092 Output Total 3690 800 Balance -585 2292 - Physical Exam Oriented: Normal Eyes: Normal Ear: Normal Nose: Normal Throat: Normal Respiratory: Normal Cardiovascular: Normal : Normal Auscultation: Bowel Sounds: Normal Palpation: Normal Tenderness: Normal Skin: Wound (SURGICAL WOUND WITH NO S/SX INFECTION NOTED ) Musculoskeletal: Right, Hip, Tender, Instability Psychiatric: Normal Mood Description: Calm Affect: Normal Speech Pattern: Clear, Appropriate - Laboratory and Diagnostics Result Diagrams: 06/28/17 05:00 06/28/17 05:00 Labs: Laboratory WBC 7.7 X10^3/uL (3.6-10.0) 06/28/17 05:00 RBC 3.07 X10^6/uL (3.5-5.4) L 06/28/17 05:00 Hgb 9.4 g/dL (12.0-16.0) L 06/28/17 05:00 Hct 25.8 % (36.0-47.0) L 06/28/17 05:00 MCV 84.3 fL (80.0-100.0) 06/28/17 05:00 MCH 30.5 pg (27.0-34.0) 06/28/17 05:00 MCHC 36.2 g/dL (33.0-35.0) H 06/28/17 05:00 RDW 14.5 % (11.6-16.5) 06/28/17 05:00 Plt Count 121 X10^3/uL (150.0-450.0) L 06/28/17 05:00 MPV 7.7 fL (7.4-11.0) 06/28/17 05:00 Neut % 77.9 % (42.0-75.0) H 06/28/17 05:00 Lymph % 14.9 % (21.0-51.0) L 06/28/17 05:00 [place] % 6.2 % (0.0-13.0) 06/28/17 05:00 Eos % 0.7 % (0.9-2.9) L 06/28/17 05:00 Baso % 0.3 % (0.2-1.0) 06/28/17 05:00 Neut # 6.0 x10^3/uL (2.2-4.8) H 06/28/17 05:00 Lymph # 1.1 X10^3/uL (1.3-2.9) L 06/28/17 05:00 [place] # 0.5 x10^3/uL (0.3-0.8) 06/28/17 05:00 Eos # 0.1 x10^3/uL (0.0-0.2) 06/28/17 05:00 Baso # 0.0 X10^3/uL (0.0-0.1) 06/28/17 05:00 Absolute Nucleated RBC 0.0 /100WBC 06/28/17 05:00 ESR 20 MM/HOUR (0-20) 06/21/17 16:05 INR Target Range - 06/21/17 16:05 INR 0.99 (0.8-1.3) 06/21/17 16:05 PTT 31.6 SECONDS (22.9-36.5) 06/21/17 16:05 PTT Comment - 06/21/17 16:05 Sodium 136 mmol/L (136-145) 06/28/17 05:00 Corrected Sodium 137 mmol/L (136-145) 06/28/17 05:00 Potassium 3.3 mmol/L (3.5-5.1) L 06/28/17 05:00 Chloride 104 mmol/L (98-107) 06/28/17 05:00 Carbon Dioxide 30.8 mmol/L (21-32) 06/28/17 05:00 BUN 5 mg/dL (7-18) L 06/28/17 05:00 Creatinine 0.56 mg/dL (0.55-1.02) 06/28/17 05:00 Est GFR (MDRD) Af Amer > 60 (>60) 06/28/17 05:00 Est GFR (MDRD) Non-Af > 60 (>60) 06/28/17 05:00 Glucose 131 mg/dL (65-99) H 06/28/17 05:00 Calcium 8.5 mg/dL (8.5-10.1) 06/28/17 05:00 Corrected Calcium TNP 06/21/17 16:05 Magnesium 1.4 mg/dL (1.7-2.9) L 06/28/17 05:00 Total Bilirubin 0.50 mg/dL (0.2-1.0) 06/21/17 16:05 AST 38 Units/L (15-37) H 06/21/17 16:05 ALT 41 Units/L (12-78) 06/21/17 16:05 Alkaline Phosphatase 196 Units/L (46-116) H 06/21/17 16:05 C-Reactive Protein 1.40 mg/L (0-3.0) 06/21/17 16:05 Total Protein 8.0 g/dL (6.4-8.2) 06/21/17 16:05 Albumin 4.0 g/dL (3.4-5.0) 06/21/17 16:05 Globulin 4.0 g/dL (2.5-4.5) 06/21/17 16:05 Albumin/Globulin Ratio 1.0 Ratio (1.1-2.1) L 06/21/17 16:05 Specimen Type Clean catch urine 06/21/17 16:05 Urine Color Yellow (YELLOW) 06/21/17 16:05 Urine Appearance Hazy (CLEAR) 06/21/17 16:05 Urine pH 5.0 (5.0 - 8.0) 06/21/17 16:05 Ur Specific [place] 1.025 (1.000-1.030) 06/21/17 16:05 Urine Protein Negative (NEGATIVE) 06/21/17 16:05 Urine Glucose (UA) Negative (NEGATIVE) 06/21/17 16:05 Urine Ketones Negative (NEGATIVE) 06/21/17 16:05 Urine Occult Blood Negative (NEGATIVE) 06/21/17 16:05 Urine Nitrite Negative (NEGATIVE) 06/21/17 16:05 Urine Bilirubin Negative (NEGATIVE) 06/21/17 16:05 Urine Urobilinogen 1+ (NORMAL) 06/21/17 16:05 Ur Leukocyte Esterase 1+ (NEGATIVE) 06/21/17 16:05 Urine RBC 0-2 /HPF (NEGATIVE) 06/21/17 16:05 Urine WBC 3-5 /HPF (NEGATIVE) 06/21/17 16:05 Ur Squamous Epith Cells Rare /HPF (NEGATIVE) 06/21/17 16:05 Urine Bacteria Trace /HPF (NEGATIVE) 06/21/17 16:05 Urine Mucus Few /HPF (NEGATIVE) 06/21/17 16:05 Ur Culture Indicated? No/not indicated 06/21/17 16:05 Staph aureus (PCR) Negative (NEGATIVE) 06/21/17 16:05 MRSA (PCR) Negative (NEGATIVE) 06/21/17 16:05 Blood Type O POSITIVE 06/21/17 16:05 Antibody Screen Negative 06/21/17 16:05 Crossmatch See Detail 06/21/17 16:05 - Plan (1) Status post total hip replacement, right Status: Acute Plan: PT/OT, DILAUDID 1-2MG IV Q4H PRN, ON Q PUMP, CONTINUE TO MONITOR (2) Hypotension Status: Acute Qualifiers: Hypotension type: postprocedural hypotension Qualified Code(s): I95.81 - Postprocedural hypotension Plan: CONTINUE TO MONITOR (3) Linda-prosthetic femur fracture at tip of prosthesis Status: Acute Qualifiers: Encounter type: initial encounter Qualified Code(s): M97.8XXA - Periprosthetic fracture around other internal prosthetic joint, initial encounter; Z96.649 - Presence of unspecified artificial hip joint; Z96.649 - Presence of unspecified artificial hip joint Plan: SURGICAL REPAIR ON MONDAY, CONTINUE TO MONITOR
[2017-06-28] MEDS: DILAUDID INJ IVP PRN (15:13)
[2017-06-28] MEDS ORDERED: NS 1000 ML 1,000 ML ONE (15:41)
[2017-06-28] MEDS: MIRALAX POWDER (1 DOSE 17GM) PO SCH (20:57)
[2017-06-28] MEDS: LOVENOX INJ 30 MG SYR SC SCH (22:20)
[2017-06-29] MEDS: PERCOCET TAB 5/325 MG PO PRN ×4 (03:28→21:11)
[2017-06-29 05:17] LABS: BLOOD UREA NITROGEN 4 mg/dL (7-18); CALCIUM 8.3 mg/dL (8.5-10.1); CARBON DIOXIDE 29.1 mmol/L (21-32); CHLORIDE 104 mmol/L (98-107); COR NA(FOR HYPERGLY) 138 mmol/L (136-145); CREATININE 0.56 mg/dL (0.55-1.02); SODIUM 137 mmol/L (136-145); eGFR BLACK RACES > 60 (>60); eGFR NON BLACK RACES > 60 (>60)
[2017-06-29 05:18] LABS: BASOPHILS % (AUTO) 0.1 % (0.2-1.0); EOSINOPHILS # (AUTO) 0.1 x10^3/uL (0.0-0.2); HEMATOCRIT 26.6 % (36.0-47.0); HEMOGLOBIN 9.5 g/dL (12.0-16.0); LYMPHOCYTES % (AUTO) 15.1 % (21.0-51.0); MEAN CORPUSCULAR HEMOGLOBIN 30.5 pg (27.0-34.0); MEAN CORPUSCULAR HGB CONC 35.9 g/dL (33.0-35.0); MEAN CORPUSCULAR VOLUME 85.1 fL (80.0-100.0); MEAN PLATELET VOLUME 8.3 fL (7.4-11.0); MONOCYTES # (AUTO) 0.4 x10^3/uL (0.3-0.8); MONOCYTES % (AUTO) 6.1 % (0.0-13.0); NEUTROPHILS # (AUTO) 5.2 x10^3/uL (2.2-4.8); NEUTROPHILS % (AUTO) 77.7 % (42.0-75.0); PLATELET COUNT 141 X10^3/uL (150.0-450.0); RED BLOOD COUNT 3.12 X10^6/uL (3.5-5.4); RED CELL DISTRIBUTION WIDTH 14.7 % (11.6-16.5); WHITE BLOOD COUNT 6.7 X10^3/uL (3.6-10.0)
[2017-06-29] MEDS: K-LYTE EFFERVESCENT PO PRN (06:17)
[2017-06-29] MEDS: PEPCID 20 MG IV PREMIX* 20 MG/50 ML BAG IV SCH ×3 (08:19→21:12)
[2017-06-29] MEDS: ZOFRAN INJ 4 MG VIAL IVP PRN ×3 (08:19→22:26)
[2017-06-29] MEDS: PROTONIX INJ 40 MG VIAL IVP SCH ×3 (08:19→21:16)
[2017-06-29] MEDS: COLACE CAP 100 MG PO SCH ×2 (08:52→21:12)
[2017-06-29] MEDS: MILK OF MAGNESIA PO SCH ×4 (08:52→21:14)
[2017-06-29] MEDS: SOMA TAB 350 MG PO SCH ×2 (08:52→21:11)
--- NOTE | 2017-06-29 10:37 | PCM.PROG ---
Progress Note - Progress Note for Day of Date: 06/29/17 - Subjective Subjective: IS A 52 YEAR OLD PATIENT OF . SHE IS STATUS POST RIGHT TOTAL HIP. SURGERY WAS ON 06/26/17. TODAY, SHE IS ALERT AND ORIENTED , LYING IN BED ON MORNING ROUNDS. SHE CONTINUES WITH COMPLAINTS OF RIGHT HIP PAIN. SURGICAL DRESSING TO RIGHT HIP IS NOTED DRY AND INTACT. NO SIGNS/SX INFECTION NOTED TO SITE. ON EXAMINATION, LUNGS ARE NOTED CLEAR TO AUSCULTATION. ABDOMEN IS SOFT, ROUND, AND NON-TENDER WITH NORMAL BOWEL SOUNDS NOTED IN ALL QUADRANTS. HER VITAL SIGNS THIS MORNING ARE 99.2-114-20-99%-125/73. A CBC AND BMP WERE OBTAINED. ABNORMAL LAB VALUES INCLUDE THE FOLLOWING: RBC 3.12, HGB 9.5 , HCT 26.6, POTASSIUM 3.2, BUN 4, GLUCOSE 143, CALCIUM 8.3, MAGNESIUM 1.5. PATIENT CONTINUES TO GET OUT OF BED WITH ASSSITANCE OF STAFF AND PHYSICAL THERAPY WITH ORDERS FOR NON-WEIGHT BEARING TO THE RIGHT LEG. STAFF REPORTS THAT PATIENTS TEMPERAURE AT 2200 LAST NIGHT WAS 102 DEGRESS. TODAY, WE WILL ORDER BLOOD CULTURES AND A URINE CULTURE. WE WILL RESTART THE VANCOMYCIN 500MG IV BID. PLANS TO TAKE PATIENT BACK TO SURGERY ON MONDAY FOR REPAIR OF FRACTURE. OTHERWISE, WE WILL CONTINUE WITH CURRENT PLAN OF CARE. WE PLAN TO FOLLOW UP WITH AM LABS AND CONTINUE TO MONITOR PATIENT. - Past Medical Family Social History Past Med/Fam/Surg Hx: No changes since H&P Allergies: Allergies cefazolin [From Ancef] Allergy (Verified 06/26/17 11:15) ciprofloxacin [From Cipro] Allergy (Verified 06/26/17 11:15) levofloxacin [From Levaquin] Allergy (Verified 05/17/17 12:07) bupropion [From Wellbutrin] Adverse Reaction (Verified 05/17/17 12:07) morphine Adverse Reaction (Verified 05/17/17 12:07) promethazine [From Phenergan] Adverse Reaction (Verified 05/17/17 12:07) - Review of Systems ROS: No change since H&P - Vital Signs and I&O's Vital Signs: Temperature 99.2 F Pulse Rate [Right Brachial] 114 Pulse Rate [Apical] 128 Pulse Rate 111 Respiratory Rate 20 Blood Pressure [Right Arm] 125/73 Blood Pressure 133/59 O2 Sat by Pulse Oximetry 99 Intake and Output: Intake & Output 06/26/17 06/27/17 06/28/17 06/29/17 11:59 11:59 11:59 11:59 Intake Total 3015 3092 1371 Output Total 3690 800 200 Balance -675 2292 1171 - Physical Exam Oriented: Normal Eyes: Normal Ear: Normal Nose: Normal Throat: Normal Respiratory: Normal Cardiovascular: Tachycardia : Normal Auscultation: Bowel Sounds: Normal Palpation: Normal Tenderness: Normal Skin: Wound (SURGICAL WOUND WITH NO S/SX INFECTION NOTED ) Musculoskeletal: Right, Hip, Tender, Instability Psychiatric: Normal Mood Description: Calm Affect: Normal Speech Pattern: Clear, Appropriate - Laboratory and Diagnostics Result Diagrams: 06/29/17 04:00 06/29/17 08:40 Labs: Laboratory WBC 6.7 X10^3/uL (3.6-10.0) 06/29/17 04:00 RBC 3.12 X10^6/uL (3.5-5.4) L 06/29/17 04:00 Hgb 9.5 g/dL (12.0-16.0) L 06/29/17 04:00 Hct 26.6 % (36.0-47.0) L 06/29/17 04:00 MCV 85.1 fL (80.0-100.0) 06/29/17 04:00 MCH 30.5 pg (27.0-34.0) 06/29/17 04:00 MCHC 35.9 g/dL (33.0-35.0) H 06/29/17 04:00 RDW 14.7 % (11.6-16.5) 06/29/17 04:00 Plt Count 141 X10^3/uL (150.0-450.0) L 06/29/17 04:00 MPV 8.3 fL (7.4-11.0) 06/29/17 04:00 Neut % 77.7 % (42.0-75.0) H 06/29/17 04:00 Lymph % 15.1 % (21.0-51.0) L 06/29/17 04:00 [place] % 6.1 % (0.0-13.0) 06/29/17 04:00 Eos % 1.0 % (0.9-2.9) 06/29/17 04:00 Baso % 0.1 % (0.2-1.0) L 06/29/17 04:00 Neut # 5.2 x10^3/uL (2.2-4.8) H 06/29/17 04:00 Lymph # 1.0 X10^3/uL (1.3-2.9) L 06/29/17 04:00 [place] # 0.4 x10^3/uL (0.3-0.8) 06/29/17 04:00 Eos # 0.1 x10^3/uL (0.0-0.2) 06/29/17 04:00 Baso # 0.0 X10^3/uL (0.0-0.1) 06/29/17 04:00 Absolute Nucleated RBC 0.0 /100WBC 06/29/17 04:00 ESR 20 MM/HOUR (0-20) 06/21/17 16:05 INR Target Range - 06/21/17 16:05 INR 0.99 (0.8-1.3) 06/21/17 16:05 PTT 31.6 SECONDS (22.9-36.5) 06/21/17 16:05 PTT Comment - 06/21/17 16:05 Sodium 137 mmol/L (136-145) 06/29/17 04:00 Corrected Sodium 138 mmol/L (136-145) 06/29/17 04:00 Potassium 3.9 mmol/L (3.5-5.1) 06/29/17 08:40 Chloride 104 mmol/L (98-107) 06/29/17 04:00 Carbon Dioxide 29.1 mmol/L (21-32) 06/29/17 04:00 BUN 4 mg/dL (7-18) L 06/29/17 04:00 Creatinine 0.56 mg/dL (0.55-1.02) 06/29/17 04:00 Est GFR (MDRD) Af Amer > 60 (>60) 06/29/17 04:00 Est GFR (MDRD) Non-Af > 60 (>60) 06/29/17 04:00 Glucose 143 mg/dL (65-99) H 06/29/17 04:00 Calcium 8.3 mg/dL (8.5-10.1) L 06/29/17 04:00 Corrected Calcium TNP 06/21/17 16:05 Magnesium 1.5 mg/dL (1.7-2.9) L 06/29/17 04:00 Total Bilirubin 0.50 mg/dL (0.2-1.0) 06/21/17 16:05 AST 38 Units/L (15-37) H 06/21/17 16:05 ALT 41 Units/L (12-78) 06/21/17 16:05 Alkaline Phosphatase 196 Units/L (46-116) H 06/21/17 16:05 C-Reactive Protein 1.40 mg/L (0-3.0) 06/21/17 16:05 Total Protein 8.0 g/dL (6.4-8.2) 06/21/17 16:05 Albumin 4.0 g/dL (3.4-5.0) 06/21/17 16:05 Globulin 4.0 g/dL (2.5-4.5) 06/21/17 16:05 Albumin/Globulin Ratio 1.0 Ratio (1.1-2.1) L 06/21/17 16:05 Specimen Type Clean catch urine 06/21/17 16:05 Urine Color Yellow (YELLOW) 06/21/17 16:05 Urine Appearance Hazy (CLEAR) 06/21/17 16:05 Urine pH 5.0 (5.0 - 8.0) 06/21/17 16:05 Ur Specific [place] 1.025 (1.000-1.030) 06/21/17 16:05 Urine Protein Negative (NEGATIVE) 06/21/17 16:05 Urine Glucose (UA) Negative (NEGATIVE) 06/21/17 16:05 Urine Ketones Negative (NEGATIVE) 06/21/17 16:05 Urine Occult Blood Negative (NEGATIVE) 06/21/17 16:05 Urine Nitrite Negative (NEGATIVE) 06/21/17 16:05 Urine Bilirubin Negative (NEGATIVE) 06/21/17 16:05 Urine Urobilinogen 1+ (NORMAL) 06/21/17 16:05 Ur Leukocyte Esterase 1+ (NEGATIVE) 06/21/17 16:05 Urine RBC 0-2 /HPF (NEGATIVE) 06/21/17 16:05 Urine WBC 3-5 /HPF (NEGATIVE) 06/21/17 16:05 Ur Squamous Epith Cells Rare /HPF (NEGATIVE) 06/21/17 16:05 Urine Bacteria Trace /HPF (NEGATIVE) 06/21/17 16:05 Urine Mucus Few /HPF (NEGATIVE) 06/21/17 16:05 Ur Culture Indicated? No/not indicated 06/21/17 16:05 Staph aureus (PCR) Negative (NEGATIVE) 06/21/17 16:05 MRSA (PCR) Negative (NEGATIVE) 06/21/17 16:05 Blood Type O POSITIVE 06/21/17 16:05 Antibody Screen Negative 06/21/17 16:05 Crossmatch See Detail 06/21/17 16:05 - Plan (1) Status post total hip replacement, right Status: Acute Plan: PT/OT, DILAUDID 1-2MG IV Q4H PRN, ON Q PUMP, CONTINUE TO MONITOR (2) Hypotension Status: Acute Qualifiers: Hypotension type: postprocedural hypotension Qualified Code(s): I95.81 - Postprocedural hypotension Plan: CONTINUE TO MONITOR (3) Linda-prosthetic femur fracture at tip of prosthesis Status: Acute Qualifiers: Encounter type: initial encounter Qualified Code(s): M97.8XXA - Periprosthetic fracture around other internal prosthetic joint, initial encounter; Z96.649 - Presence of unspecified artificial hip joint; Z96.649 - Presence of unspecified artificial hip joint Plan: SURGICAL REPAIR ON MONDAY, CONTINUE TO MONITOR
[2017-06-29] MEDS: VANCOMYCIN HCL 500 MG VIAL 500 MG in NS 100 ML IV + SPIKE MINIBAG* 100 ML IV SCH ×2 (11:17→21:12)
--- NOTE | 2017-06-29 13:26 | PCM.PROG ---
Progress Note - Progress Note for Day of Date: 06/29/17 - Subjective Subjective: she is postop day 3. Her vital signs stabilized. She continues to get out of the bed with the help of fluoroscopy physical therapy and staff nonweightbearing. We're awaiting the graft for surgery and most probably for surgery Monday. She did have a spike yesterday. Blood cultures have been ordered. Her counts are normal. Surgical site dressing clean and dry. - Past Medical Family Social History Past Med/Fam/Surg Hx: No changes since H&P Allergies: Allergies cefazolin [From Ancef] Allergy (Verified 06/26/17 11:15) ciprofloxacin [From Cipro] Allergy (Verified 06/26/17 11:15) levofloxacin [From Levaquin] Allergy (Verified 05/17/17 12:07) bupropion [From Wellbutrin] Adverse Reaction (Verified 05/17/17 12:07) morphine Adverse Reaction (Verified 05/17/17 12:07) promethazine [From Phenergan] Adverse Reaction (Verified 05/17/17 12:07) - Review of Systems ROS: No change since H&P - Vital Signs and I&O's Vital Signs: Temperature 99.2 F Pulse Rate [Right Brachial] 112 Pulse Rate [Apical] 128 Pulse Rate 111 Respiratory Rate 18 Blood Pressure [Right Arm] 135/86 Blood Pressure 133/59 O2 Sat by Pulse Oximetry 99 Intake and Output: Intake & Output 06/27/17 06/28/17 06/29/17 06/30/17 11:59 11:59 11:59 11:59 Intake Total 3015 3092 1371 Output Total 3690 800 200 Balance -675 2292 1171 - Physical Exam Oriented: Normal Eyes: Normal Ear: Normal Nose: Normal Throat: Normal Respiratory: Normal Cardiovascular: Tachycardia : Normal Auscultation: Bowel Sounds: Normal Tenderness: Normal Skin: Wound (SURGICAL WOUND WITH NO S/SX INFECTION NOTED ) Musculoskeletal: Right, Hip, Tender, Instability Psychiatric: Normal Mood Description: Calm Affect: Normal Speech Pattern: Clear, Appropriate - Laboratory and Diagnostics Result Diagrams: 06/29/17 04:00 06/29/17 08:40 Labs: Laboratory WBC 6.7 X10^3/uL (3.6-10.0) 06/29/17 04:00 RBC 3.12 X10^6/uL (3.5-5.4) L 06/29/17 04:00 Hgb 9.5 g/dL (12.0-16.0) L 06/29/17 04:00 Hct 26.6 % (36.0-47.0) L 06/29/17 04:00 MCV 85.1 fL (80.0-100.0) 06/29/17 04:00 MCH 30.5 pg (27.0-34.0) 06/29/17 04:00 MCHC 35.9 g/dL (33.0-35.0) H 06/29/17 04:00 RDW 14.7 % (11.6-16.5) 06/29/17 04:00 Plt Count 141 X10^3/uL (150.0-450.0) L 06/29/17 04:00 MPV 8.3 fL (7.4-11.0) 06/29/17 04:00 Neut % 77.7 % (42.0-75.0) H 06/29/17 04:00 Lymph % 15.1 % (21.0-51.0) L 06/29/17 04:00 [place] % 6.1 % (0.0-13.0) 06/29/17 04:00 Eos % 1.0 % (0.9-2.9) 06/29/17 04:00 Baso % 0.1 % (0.2-1.0) L 06/29/17 04:00 Neut # 5.2 x10^3/uL (2.2-4.8) H 06/29/17 04:00 Lymph # 1.0 X10^3/uL (1.3-2.9) L 06/29/17 04:00 [place] # 0.4 x10^3/uL (0.3-0.8) 06/29/17 04:00 Eos # 0.1 x10^3/uL (0.0-0.2) 06/29/17 04:00 Baso # 0.0 X10^3/uL (0.0-0.1) 06/29/17 04:00 Absolute Nucleated RBC 0.0 /100WBC 06/29/17 04:00 ESR 20 MM/HOUR (0-20) 06/21/17 16:05 INR Target Range - 06/21/17 16:05 INR 0.99 (0.8-1.3) 06/21/17 16:05 PTT 31.6 SECONDS (22.9-36.5) 06/21/17 16:05 PTT Comment - 06/21/17 16:05 Sodium 137 mmol/L (136-145) 06/29/17 04:00 Corrected Sodium 138 mmol/L (136-145) 06/29/17 04:00 Potassium 3.9 mmol/L (3.5-5.1) 06/29/17 08:40 Chloride 104 mmol/L (98-107) 06/29/17 04:00 Carbon Dioxide 29.1 mmol/L (21-32) 06/29/17 04:00 BUN 4 mg/dL (7-18) L 06/29/17 04:00 Creatinine 0.56 mg/dL (0.55-1.02) 06/29/17 04:00 Est GFR (MDRD) Af Amer > 60 (>60) 06/29/17 04:00 Est GFR (MDRD) Non-Af > 60 (>60) 06/29/17 04:00 Glucose 143 mg/dL (65-99) H 06/29/17 04:00 Calcium 8.3 mg/dL (8.5-10.1) L 06/29/17 04:00 Corrected Calcium TNP 06/21/17 16:05 Magnesium 1.5 mg/dL (1.7-2.9) L 06/29/17 04:00 Total Bilirubin 0.50 mg/dL (0.2-1.0) 06/21/17 16:05 AST 38 Units/L (15-37) H 06/21/17 16:05 ALT 41 Units/L (12-78) 06/21/17 16:05 Alkaline Phosphatase 196 Units/L (46-116) H 06/21/17 16:05 C-Reactive Protein 1.40 mg/L (0-3.0) 06/21/17 16:05 Total Protein 8.0 g/dL (6.4-8.2) 06/21/17 16:05 Albumin 4.0 g/dL (3.4-5.0) 06/21/17 16:05 Globulin 4.0 g/dL (2.5-4.5) 06/21/17 16:05 Albumin/Globulin Ratio 1.0 Ratio (1.1-2.1) L 06/21/17 16:05 Specimen Type Clean catch urine 06/21/17 16:05 Urine Color Yellow (YELLOW) 06/21/17 16:05 Urine Appearance Hazy (CLEAR) 06/21/17 16:05 Urine pH 5.0 (5.0 - 8.0) 06/21/17 16:05 Ur Specific [place] 1.025 (1.000-1.030) 06/21/17 16:05 Urine Protein Negative (NEGATIVE) 06/21/17 16:05 Urine Glucose (UA) Negative (NEGATIVE) 06/21/17 16:05 Urine Ketones Negative (NEGATIVE) 06/21/17 16:05 Urine Occult Blood Negative (NEGATIVE) 06/21/17 16:05 Urine Nitrite Negative (NEGATIVE) 06/21/17 16:05 Urine Bilirubin Negative (NEGATIVE) 06/21/17 16:05 Urine Urobilinogen 1+ (NORMAL) 06/21/17 16:05 Ur Leukocyte Esterase 1+ (NEGATIVE) 06/21/17 16:05 Urine RBC 0-2 /HPF (NEGATIVE) 06/21/17 16:05 Urine WBC 3-5 /HPF (NEGATIVE) 06/21/17 16:05 Ur Squamous Epith Cells Rare /HPF (NEGATIVE) 06/21/17 16:05 Urine Bacteria Trace /HPF (NEGATIVE) 06/21/17 16:05 Urine Mucus Few /HPF (NEGATIVE) 06/21/17 16:05 Ur Culture Indicated? No/not indicated 06/21/17 16:05 Staph aureus (PCR) Negative (NEGATIVE) 06/21/17 16:05 MRSA (PCR) Negative (NEGATIVE) 06/21/17 16:05 Blood Type O POSITIVE 06/21/17 16:05 Antibody Screen Negative 06/21/17 16:05 Crossmatch See Detail 06/21/17 16:05 - Plan (1) Linda-prosthetic femur fracture at tip of prosthesis Status: Acute Qualifiers: Encounter type: initial encounter Qualified Code(s): M97.8XXA - Periprosthetic fracture around other internal prosthetic joint, initial encounter; Z96.649 - Presence of unspecified artificial hip joint; Z96.649 - Presence of unspecified artificial hip joint Plan: SURGICAL REPAIR ON MONDAY, CONTINUE TO MONITOR
--- NOTE | 2017-06-29 14:35 | OR.GENERIC ---
Post-Op Note Generic - Post-Op Note Operative Report: PREOPERATIVE DIAGNOSIS: Right hip degenerative arthritis, surya 2 dysplastic hip POSTOPERATIVE DIAGNOSIS: RIGHT hip degenerative arthritis, surya 2 dysplastic hip PROCEDURE PERFORMED: RIGHT total hip arthroplasty ANESTHESIA: General. BLOOD LOSS: 800 cc. The patient was positioned with the left hip exposed on the pegboard. IMPLANT SPECIFICATION: ADM 50 mm acetabular shell cluster, 28 mm ceramic head, with 48 mm ADM insert, [place] Accloade femur 2 with zero neck. Cable 1. GROSS INTRAOPERATIVE FINDINGS: Severe degenerative changes within the femoral head as well as the acetabulum. Dysplastic hip with absent inferior medial wall. Severely anteverted femoral neck. Very short neck. Dysplastic flat femoral head with osteophytes and complete loss of articular cartilage. shortened hip abductors. HISTORY: This is a 4-year-old female with a history of RIGHT hip degenerative dysplastic osteoarthritis. She has a skeletal dysplasia. She has undergone multiple orthopedic procedures in the past for the same. RIGHT hip has been operated in the form of derotation osteotomy as well as acetabuloplasty in the past. She is off for short stature. She has a severe scoliosis and also pelvic deformities. Because of the increased amount of pain as well as severe effect on her activities of daily living and uncontrollable pain with narcotic medication, the patient has elected to undergo the above-named procedure. All risks as well complications were discussed with the patient including but not limited to infection, scar, dislocation, need for further surgery, risk of anesthesia, deep vein thrombosis, and implant failure. The patient understood all these risks and was willing to continue further on with the procedure. PROCEDURE:. Patient was brought to the operating room. Spinal epidural was done. She got appropriate antibiotic. Floyd catheter was inserted. She was positioned with peg board in a LEFT lateral position. An axillary roll was placed. All her bony prominences were well padded. At this time, the RIGHT hip and RIGHT lower extremity was then prepped and draped in the usual sterile fashion for this procedure. At this time, a posterior approach was then performed. A curvilinear incision placed over the posterior half of trochanter was placed. Dissection carried down through the subcutaneous tissue to expose the TFL and the distal part of the incision. Incision made in the TFL and The G max fibers split along. Charnley retractor applied. Fat pad was elevated with the Ray-Rosey exposing the short external rotators. Inferior and superior sutures with heavy sutures placed in the rotators and the capsule. The short rotators with capsule were taken down with cautery to expose the hip. The trochanter was noted very posteriorly counting the neck and head. The neck measured only about 2-3 cm. The head was completely flat and devoid of any articular cartilage it had completely collapsed. The hip was dislocated with flexion adduction and internal rotation. An neck osteotomy was completed with an oscillating saw. The femoral head was then removed. The acetabulum was exposed after an anterior capsulotomy was done. Retractors were placed anteriorly posteriorly and inferiorly. Acetabulum was found to be deficient inferomedially. The floor was identifiable about the deficit. A long-handle knife was used to cut through the remainder of the capsule and remove the glenoid labrum around the rim of the acetabulum. With better exposure of the acetabulum, we started reaming the acetabulum. We started with a size #44 and progressively reamed to a size #50. At the size #50 mm reamer, we obtained excellent bony bleeding with good remainder of bone stalk both anteriorly and posteriorly as well as superiorly within the acetabulum. A size 50 mm cup was then implanted with excellent approaches approximately 45 degrees of abduction and 10 to 15 degrees of anteversion dialed in. Five screws were the placed within the superior table for better approaches securing the acetabular cup due to deficient medial and inferior wall. At this time, a plastic liner was then inserted for protection. The leg was flexed and abducted and rotated 90 to prepare the femur. A Mary retractor was used to retract the tensor fascia sandra and femoral elevator was used to elevate the femur for better exposure and at this time, we began working on the femur. A rongeur was used to lateralize over the greater trochanter. A Box osteotome was used to remove the cancellous portion of the femoral neck. A Charnley awl was then used to cannulate through the proximal femoral canal. A power reamer was then used to ream the lateral aspect of the greater trochanter in order to provide maximal lateralization and prevent varus implantation of our stem. At this time, we began broaching. We started with a size #0 and progressively worked up to a size #2 mm broach. Once the 2 mm broach was inserted in place, it was seated approximately 1 mm below the calcar. A calcar reamer was then placed and the calcar was reamed smoothly. A standard neck as well as a 28 mm plastic head was then placed and a trial reduction was then performed. Once this was performed, the hip was taken to range of motion with external rotation , longitudinal traction as well as flexion and revealed good stability with no impingement or dislocation. At this time, we removed 2 mm broach and proceeded with implanting our polyethylene liner within the acetabulum. This was impacted and placed and checked to assure that it was well seated with no loosening. At this time and calcar split was noted. The trial was removed and an cerclage wire was placed above the lesser. Once this was performed, we then exposed the proximal femur one more time. We copiously irrigated within the canal and then suctioned it dry. At this time, a 2 mm porous proximal collared stem, a femoral component was then impacted in place. The ADM complement was assembled on the back table. The 28 mm zero neck length cobalt-chrome femoral head was then impacted in place and the Moody taper assured that this was well fixed . Next, the hip was then reduced within the acetabulum and again we checked range of motion as well as ligamentous stability with gentle traction, external rotation, as well as hip flexion. We were satisfied with components as well as the alignment of the components. Copious irrigation was then used to irrigate the wound. #1 Ethibond was then used to approximate the hip capsule. #1 Eth[place]ond in interrupted fashion was used to approximate the vastus lateralis as well as the gluteus medius attachment over the partial gluteus medius attachment which was resected off the greater trochanter. Next, a #1 Ethibond was then used to approximate the tensor fascia sandra with [id number] closure. A tight closure was performed. Since the patient did have a lot of subcutaneous fat, multiple #2-0 Vicryl sutures were then used to approximate the bed space and then #2-0 Vicryl for the subcutaneous skin. Ham[place] were then used for skin closure. The patients hip was then cleansed. Sterile dressings consisting of Adaptic, 4 x 4, ABDs, and foam tape were then placed. A drain was placed prior to wound closure for postoperative drainage. After the dressing was applied, the patient was extubated safely and transferred to recovery in stable condition. Prognosis is good.
[2017-06-29] MEDS: NYSTATIN SUSP PO SCH ×2 (19:31→22:26)
[2017-06-29] MEDS: MIRALAX POWDER (1 DOSE 17GM) PO SCH (21:12)
[2017-06-29] MEDS: AMBIEN PO SCH (21:22)
[2017-06-29] MEDS: LOVENOX INJ 30 MG SYR SC SCH (22:26)
[2017-06-30 05:51] LABS: BASOPHILS % (AUTO) 0.3 % (0.2-1.0); EOSINOPHILS # (AUTO) 0.1 x10^3/uL (0.0-0.2); EOSINOPHILS % (AUTO) 2.6 % (0.9-2.9); HEMATOCRIT 27.1 % (36.0-47.0); HEMOGLOBIN 9.8 g/dL (12.0-16.0); LYMPHOCYTES # (AUTO) 1.1 X10^3/uL (1.3-2.9); LYMPHOCYTES % (AUTO) 20.6 % (21.0-51.0); MEAN CORPUSCULAR HEMOGLOBIN 30.8 pg (27.0-34.0); MEAN CORPUSCULAR VOLUME 85.7 fL (80.0-100.0); MEAN PLATELET VOLUME 8.2 fL (7.4-11.0); MONOCYTES # (AUTO) 0.3 x10^3/uL (0.3-0.8); MONOCYTES % (AUTO) 5.4 % (0.0-13.0); NEUTROPHILS # (AUTO) 3.7 x10^3/uL (2.2-4.8); NEUTROPHILS % (AUTO) 71.1 % (42.0-75.0); PLATELET COUNT 187 X10^3/uL (150.0-450.0); RED BLOOD COUNT 3.17 X10^6/uL (3.5-5.4); RED CELL DISTRIBUTION WIDTH 14.7 % (11.6-16.5); WHITE BLOOD COUNT 5.2 X10^3/uL (3.6-10.0)
[2017-06-30 06:11] LABS: ALANINE AMINOTRANSFERASE 18 Units/L (12-78); ALKALINE PHOSPHATASE 95 Units/L (46-116); ASPARTATE AMINO TRANSFERASE 19 Units/L (15-37); BLOOD UREA NITROGEN 5 mg/dL (7-18); CALCIUM 8.3 mg/dL (8.5-10.1); CARBON DIOXIDE 28.8 mmol/L (21-32); CHLORIDE 105 mmol/L (98-107); COR CA(FOR HYPOALB) 9.9 mg/dL (8.5-10.1); COR NA(FOR HYPERGLY) 138 mmol/L (136-145); CREATININE 0.53 mg/dL (0.55-1.02); MAGNESIUM 1.9 mg/dL (1.7-2.9); SODIUM 138 mmol/L (136-145); TOTAL PROTEIN 5.4 g/dL (6.4-8.2); eGFR BLACK RACES > 60 (>60); eGFR NON BLACK RACES > 60 (>60)
[2017-06-30] MEDS: PERCOCET TAB 5/325 MG PO PRN ×4 (06:34→21:50)
[2017-06-30] MEDS: K-LYTE EFFERVESCENT PO PRN (06:42)
[2017-06-30] MEDS: NYSTATIN SUSP PO SCH ×4 (08:51→21:53)
[2017-06-30] MEDS: PROTONIX INJ 40 MG VIAL IVP SCH ×2 (08:52→21:53)
[2017-06-30] MEDS: COLACE CAP 100 MG PO SCH ×2 (08:52→21:49)
[2017-06-30] MEDS: SOMA TAB 350 MG PO SCH ×2 (08:52→21:50)
[2017-06-30] MEDS: VANCOMYCIN HCL 500 MG VIAL 500 MG in NS 100 ML IV + SPIKE MINIBAG* 100 ML IV SCH ×2 (09:40→21:51)
[2017-06-30] MEDS: MILK OF MAGNESIA PO SCH ×4 (09:53→21:52)
[2017-06-30] MEDS: ALBUMIN HUMAN 25%- 100ML 100 ML IV SCH ×2 (10:40→11:23)
[2017-06-30] MEDS: PEPCID 20 MG IV PREMIX* 20 MG/50 ML BAG IV SCH ×2 (13:00→21:52)
[2017-06-30] MEDS: ZOFRAN INJ 4 MG VIAL IVP PRN ×2 (13:14→20:07)
[2017-06-30 21:10] LABS: CREATININE 0.6 mg/dL (0.55-1.02); VANCOMYCIN,TROUGH 3.4 ug/mL (15-20)
[2017-06-30] MEDS: AMBIEN PO SCH (21:50)
[2017-06-30] MEDS: MIRALAX POWDER (1 DOSE 17GM) PO SCH (21:52)
[2017-06-30] MEDS: LOVENOX INJ 30 MG SYR SC SCH (21:54)
[2017-07-01] MEDS: PERCOCET TAB 5/325 MG PO PRN ×4 (04:20→21:36)
[2017-07-01 05:53] LABS: BASOPHILS # (AUTO) 0.1 X10^3/uL (0.0-0.1); BASOPHILS % (AUTO) 1.3 % (0.2-1.0); EOSINOPHILS # (AUTO) 0.2 x10^3/uL (0.0-0.2); EOSINOPHILS % (AUTO) 4.1 % (0.9-2.9); HEMATOCRIT 24.7 % (36.0-47.0); HEMOGLOBIN 8.8 g/dL (12.0-16.0); LYMPHOCYTES # (AUTO) 1.1 X10^3/uL (1.3-2.9); LYMPHOCYTES % (AUTO) 26.2 % (21.0-51.0); MEAN CORPUSCULAR HEMOGLOBIN 30.8 pg (27.0-34.0); MEAN CORPUSCULAR HGB CONC 35.8 g/dL (33.0-35.0); MEAN CORPUSCULAR VOLUME 86.1 fL (80.0-100.0); MEAN PLATELET VOLUME 7.6 fL (7.4-11.0); MONOCYTES # (AUTO) 0.4 x10^3/uL (0.3-0.8); MONOCYTES % (AUTO) 9.2 % (0.0-13.0); NEUTROPHILS # (AUTO) 2.5 x10^3/uL (2.2-4.8); NEUTROPHILS % (AUTO) 59.2 % (42.0-75.0); PLATELET COUNT 196 X10^3/uL (150.0-450.0); RED BLOOD COUNT 2.87 X10^6/uL (3.5-5.4); RED CELL DISTRIBUTION WIDTH 14.5 % (11.6-16.5); WHITE BLOOD COUNT 4.2 X10^3/uL (3.6-10.0)
[2017-07-01 06:17] LABS: ALANINE AMINOTRANSFERASE 25 Units/L (12-78); ALBUMIN 2.5 g/dL (3.4-5.0); ALKALINE PHOSPHATASE 82 Units/L (46-116); ASPARTATE AMINO TRANSFERASE 29 Units/L (15-37); BLOOD UREA NITROGEN 5 mg/dL (7-18); CALCIUM 8.5 mg/dL (8.5-10.1); CARBON DIOXIDE 28.6 mmol/L (21-32); CHLORIDE 107 mmol/L (98-107); COR CA(FOR HYPOALB) 9.7 mg/dL (8.5-10.1); CREATININE 0.51 mg/dL (0.55-1.02); SODIUM 140 mmol/L (136-145); TOTAL PROTEIN 5.6 g/dL (6.4-8.2); eGFR BLACK RACES > 60 (>60); eGFR NON BLACK RACES > 60 (>60)
[2017-07-01] MEDS: K-RIDER 10 MEQ/NS 100 ML 10 MEQ/100 ML BAG IV PRN (07:10)
[2017-07-01] MEDS: K-LYTE EFFERVESCENT PO PRN (07:15)
[2017-07-01] MEDS ORDERED: NS 50 ML IV 50 ML IV ONE ×2 (07:25→20:38)
[2017-07-01] MEDS ORDERED: ATIVAN INJ 2 MG VIAL ONE ×2 (07:26→20:40)
[2017-07-01] MEDS: ZOFRAN INJ 4 MG VIAL 16 MG, ATIVAN INJ 2 MG VIAL 1 MG, DECADRON INJ 10 MG in NS 50 ML I... IV PRN ×2 (07:35→21:50)
[2017-07-01] MEDS: ALBUMIN HUMAN 25%- 100ML 100 ML IV SCH (08:35)
[2017-07-01] MEDS: MILK OF MAGNESIA PO SCH ×4 (08:36→21:33)
[2017-07-01] MEDS: SOMA TAB 350 MG PO SCH ×2 (08:36→20:29)
[2017-07-01] MEDS: VANCOMYCIN HCL 500 MG VIAL 500 MG in NS 100 ML IV + SPIKE MINIBAG* 100 ML IV SCH ×2 (08:36→20:22)
[2017-07-01] MEDS: NYSTATIN SUSP PO SCH ×4 (08:36→21:33)
[2017-07-01] MEDS: PROTONIX INJ 40 MG VIAL IVP SCH ×2 (08:36→20:25)
[2017-07-01] MEDS: COLACE CAP 100 MG PO SCH ×2 (08:36→21:32)
[2017-07-01] MEDS: PEPCID 20 MG IV PREMIX* 20 MG/50 ML BAG IV SCH ×2 (08:36→20:25)
[2017-07-01] MEDS: NS 1000 ML 1,000 ML IV SCH (13:41)
[2017-07-01] MEDS: AMBIEN PO SCH (20:30)
[2017-07-01] MEDS: MIRALAX POWDER (1 DOSE 17GM) PO SCH (21:32)
[2017-07-01] MEDS: LOVENOX INJ 30 MG SYR SC SCH (23:15)
[2017-07-02] MEDS: PERCOCET TAB 5/325 MG PO PRN ×4 (02:28→19:29)
[2017-07-02 05:10] LABS: BASOPHILS % (AUTO) 0.6 % (0.2-1.0); EOSINOPHILS # (AUTO) 0.2 x10^3/uL (0.0-0.2); EOSINOPHILS % (AUTO) 4.8 % (0.9-2.9); HEMATOCRIT 24.9 % (36.0-47.0); HEMOGLOBIN 8.8 g/dL (12.0-16.0); LYMPHOCYTES # (AUTO) 1.1 X10^3/uL (1.3-2.9); LYMPHOCYTES % (AUTO) 26.8 % (21.0-51.0); MEAN CORPUSCULAR HEMOGLOBIN 30.7 pg (27.0-34.0); MEAN CORPUSCULAR HGB CONC 35.6 g/dL (33.0-35.0); MEAN CORPUSCULAR VOLUME 86.4 fL (80.0-100.0); MEAN PLATELET VOLUME 7.7 fL (7.4-11.0); MONOCYTES # (AUTO) 0.4 x10^3/uL (0.3-0.8); MONOCYTES % (AUTO) 10.1 % (0.0-13.0); NEUTROPHILS # (AUTO) 2.3 x10^3/uL (2.2-4.8); NEUTROPHILS % (AUTO) 57.7 % (42.0-75.0); PLATELET COUNT 216 X10^3/uL (150.0-450.0); RED BLOOD COUNT 2.88 X10^6/uL (3.5-5.4); RED CELL DISTRIBUTION WIDTH 14.1 % (11.6-16.5)
[2017-07-02 05:24] LABS: ALANINE AMINOTRANSFERASE 13 Units/L (12-78); ALBUMIN 2.7 g/dL (3.4-5.0); ALKALINE PHOSPHATASE 80 Units/L (46-116); ASPARTATE AMINO TRANSFERASE 25 Units/L (15-37); BLOOD UREA NITROGEN 7 mg/dL (7-18); CALCIUM 8.9 mg/dL (8.5-10.1); CARBON DIOXIDE 26.9 mmol/L (21-32); CHLORIDE 107 mmol/L (98-107); COR CA(FOR HYPOALB) 9.9 mg/dL (8.5-10.1); CREATININE 0.55 mg/dL (0.55-1.02); SODIUM 140 mmol/L (136-145); TOTAL PROTEIN 5.5 g/dL (6.4-8.2); eGFR BLACK RACES > 60 (>60); eGFR NON BLACK RACES > 60 (>60)
[2017-07-02] MEDS: K-LYTE EFFERVESCENT PO PRN (06:21)
[2017-07-02] MEDS ORDERED: ATIVAN INJ 2 MG VIAL ONE ×2 (07:13→20:55)
[2017-07-02] MEDS ORDERED: NS 50 ML IV 50 ML IV ONE ×2 (07:13→20:55)
[2017-07-02] MEDS: ZOFRAN INJ 4 MG VIAL 16 MG, ATIVAN INJ 2 MG VIAL 1 MG, DECADRON INJ 10 MG in NS 50 ML I... IV PRN ×2 (07:22→21:09)
[2017-07-02] MEDS: PROTONIX INJ 40 MG VIAL IVP SCH ×2 (08:35→21:15)
[2017-07-02] MEDS: COLACE CAP 100 MG PO SCH ×2 (08:35→23:33)
[2017-07-02] MEDS: SOMA TAB 350 MG PO SCH ×2 (08:35→21:19)
[2017-07-02] MEDS: PEPCID 20 MG IV PREMIX* 20 MG/50 ML BAG IV SCH ×2 (08:35→21:14)
[2017-07-02] MEDS: ALBUMIN HUMAN 25%- 100ML 100 ML IV SCH (08:35)
[2017-07-02] MEDS: NYSTATIN SUSP PO SCH ×4 (08:35→23:34)
[2017-07-02] MEDS: VANCOMYCIN HCL 500 MG VIAL 500 MG in NS 100 ML IV + SPIKE MINIBAG* 100 ML IV SCH (08:35)
[2017-07-02] MEDS: MILK OF MAGNESIA PO SCH ×2 (08:55→12:19)
[2017-07-02] MEDS: NS 1000 ML 1,000 ML IV SCH ×2 (09:26→13:15)
[2017-07-02 11:10] LABS: CREATININE 0.65 mg/dL (0.55-1.02); VANCOMYCIN,TROUGH 4.2 ug/mL (15-20)
[2017-07-02] MEDS ORDERED: NS 1000 ML 1,000 ML with MVI INJ (ADULT) 1 ML IV SCH ×2 (14:08)
[2017-07-02] MEDS: SPIKE MINIBAG IV SCH (21:08)
[2017-07-02] MEDS: NS IV SCH (21:08)
[2017-07-02] MEDS: VANCOMYCIN HCL IV SCH (21:08)
[2017-07-02] MEDS: LOVENOX INJ 30 MG SYR SC SCH (21:26)
[2017-07-02] MEDS: AMBIEN PO SCH (21:45)
[2017-07-02] MEDS ORDERED: BENADRYL INJ 50 MG VIAL IVP ONE (22:29)
[2017-07-02] MEDS: MIRALAX POWDER (1 DOSE 17GM) PO SCH (23:34)
[2017-07-03] MEDS ORDERED: NS 1000 ML 1,000 ML ONE (03:39)
[2017-07-03 04:42] LABS: BASOPHILS % (AUTO) 0.4 % (0.2-1.0); EOSINOPHILS # (AUTO) 0.1 x10^3/uL (0.0-0.2); EOSINOPHILS % (AUTO) 3.8 % (0.9-2.9); HEMATOCRIT 22.6 % (36.0-47.0); HEMOGLOBIN 8.1 g/dL (12.0-16.0); LYMPHOCYTES # (AUTO) 1.1 X10^3/uL (1.3-2.9); LYMPHOCYTES % (AUTO) 30.1 % (21.0-51.0); MEAN CORPUSCULAR HEMOGLOBIN 31.1 pg (27.0-34.0); MEAN CORPUSCULAR HGB CONC 35.8 g/dL (33.0-35.0); MEAN CORPUSCULAR VOLUME 86.8 fL (80.0-100.0); MEAN PLATELET VOLUME 7.2 fL (7.4-11.0); MONOCYTES # (AUTO) 0.3 x10^3/uL (0.3-0.8); MONOCYTES % (AUTO) 9.4 % (0.0-13.0); NEUTROPHILS # (AUTO) 2.1 x10^3/uL (2.2-4.8); NEUTROPHILS % (AUTO) 56.3 % (42.0-75.0); PLATELET COUNT 235 X10^3/uL (150.0-450.0); RED CELL DISTRIBUTION WIDTH 14.3 % (11.6-16.5); WHITE BLOOD COUNT 3.7 X10^3/uL (3.6-10.0)
[2017-07-03 04:58] LABS: ALANINE AMINOTRANSFERASE 17 Units/L (12-78); ALBUMIN 2.8 g/dL (3.4-5.0); ALKALINE PHOSPHATASE 80 Units/L (46-116); ASPARTATE AMINO TRANSFERASE 20 Units/L (15-37); BLOOD UREA NITROGEN 8 mg/dL (7-18); CALCIUM 8.4 mg/dL (8.5-10.1); CARBON DIOXIDE 27.3 mmol/L (21-32); CHLORIDE 107 mmol/L (98-107); COR CA(FOR HYPOALB) 9.4 mg/dL (8.5-10.1); CREATININE 0.53 mg/dL (0.55-1.02); SODIUM 142 mmol/L (136-145); TOTAL PROTEIN 5.4 g/dL (6.4-8.2); eGFR BLACK RACES > 60 (>60); eGFR NON BLACK RACES > 60 (>60)
[2017-07-03] MEDS: PERCOCET TAB 5/325 MG PO PRN ×4 (05:42→18:04)
[2017-07-03] MEDS: ALBUMIN HUMAN 25%- 100ML 100 ML IV SCH (08:51)
[2017-07-03] MEDS: COLACE CAP 100 MG PO SCH ×2 (08:51→21:24)
[2017-07-03] MEDS: NYSTATIN SUSP PO SCH ×3 (08:51→16:43)
[2017-07-03] MEDS: PEPCID 20 MG IV PREMIX* 20 MG/50 ML BAG IV SCH (08:51)
[2017-07-03] MEDS: SOMA TAB 350 MG PO SCH ×2 (08:52→21:24)
[2017-07-03] MEDS: PROTONIX INJ 40 MG VIAL IVP SCH (08:52)
[2017-07-03] MEDS: SPIKE MINIBAG IV SCH ×2 (11:06→21:21)
[2017-07-03] MEDS: VANCOMYCIN HCL IV SCH ×2 (11:06→21:21)
[2017-07-03] MEDS: NS IV SCH ×2 (11:06→21:21)
[2017-07-03] MEDS: ZOFRAN INJ 4 MG VIAL 16 MG, ATIVAN INJ 2 MG VIAL 1 MG in NS 50 ML IV 50 ML IV PRN ×2 (12:53→21:32)
[2017-07-03] MEDS: NS 1000 ML 1,000 ML with MVI INJ (ADULT) 10 ML IV SCH ×2 (15:00)
[2017-07-03 15:58] VITALS: BMI 25.7
[2017-07-03 21:11] LABS: CREATININE 0.8 mg/dL (0.55-1.02); VANCOMYCIN,TROUGH 11.2 ug/mL (15-20)
[2017-07-03] MEDS ORDERED: ATIVAN INJ 2 MG VIAL ONE (21:14)
[2017-07-03] MEDS: AMBIEN PO SCH (21:24)
[2017-07-04] MEDS: PERCOCET TAB 5/325 MG PO PRN ×5 (00:06→20:44)
[2017-07-04] MEDS: PROTONIX INJ 40 MG VIAL IVP SCH ×3 (00:06→20:44)
[2017-07-04] MEDS: MIRALAX POWDER (1 DOSE 17GM) PO SCH ×2 (00:06→22:34)
[2017-07-04] MEDS: PEPCID 20 MG IV PREMIX* 20 MG/50 ML BAG IV SCH ×3 (00:07→22:35)
[2017-07-04] MEDS: NYSTATIN SUSP PO SCH ×6 (00:07→22:34)
[2017-07-04] MEDS: LOVENOX INJ 30 MG SYR SC SCH ×2 (00:07→22:37)
[2017-07-04] MEDS ORDERED: NS 1000 ML 1,000 ML ONE (04:57)
[2017-07-04] MEDS ORDERED: MVI INJ (ADULT) IV ONE (04:58)
[2017-07-04 06:52] LABS: EOSINOPHILS # (AUTO) 0.1 x10^3/uL (0.0-0.2); EOSINOPHILS % (AUTO) 3.3 % (0.9-2.9); HEMOGLOBIN 8.2 g/dL (12.0-16.0); LYMPHOCYTES # (AUTO) 0.8 X10^3/uL (1.3-2.9); LYMPHOCYTES % (AUTO) 21.4 % (21.0-51.0); MEAN CORPUSCULAR HGB CONC 35.6 g/dL (33.0-35.0); MEAN PLATELET VOLUME 7.2 fL (7.4-11.0); MONOCYTES # (AUTO) 0.3 x10^3/uL (0.3-0.8); MONOCYTES % (AUTO) 8.1 % (0.0-13.0); NEUTROPHILS # (AUTO) 2.5 x10^3/uL (2.2-4.8); NEUTROPHILS % (AUTO) 66.2 % (42.0-75.0); PLATELET COUNT 282 X10^3/uL (150.0-450.0); RED BLOOD COUNT 2.64 X10^6/uL (3.5-5.4); RED CELL DISTRIBUTION WIDTH 14.8 % (11.6-16.5); WHITE BLOOD COUNT 3.8 X10^3/uL (3.6-10.0)
[2017-07-04 07:09] LABS: ALANINE AMINOTRANSFERASE 18 Units/L (12-78); ALKALINE PHOSPHATASE 86 Units/L (46-116); ASPARTATE AMINO TRANSFERASE 21 Units/L (15-37); BLOOD UREA NITROGEN 9 mg/dL (7-18); CALCIUM 8.8 mg/dL (8.5-10.1); CHLORIDE 106 mmol/L (98-107); COR CA(FOR HYPOALB) 9.6 mg/dL (8.5-10.1); SODIUM 140 mmol/L (136-145); TOTAL PROTEIN 5.8 g/dL (6.4-8.2); eGFR BLACK RACES > 60 (>60); eGFR NON BLACK RACES > 60 (>60)
[2017-07-04] MEDS: ALBUMIN HUMAN 25%- 100ML 100 ML IV SCH (09:13)
[2017-07-04] MEDS: SOMA TAB 350 MG PO SCH ×2 (09:14→20:45)
[2017-07-04] MEDS: COLACE CAP 100 MG PO SCH ×2 (09:14→22:34)
[2017-07-04] MEDS: SPIKE MINIBAG IV SCH ×2 (10:32→22:35)
[2017-07-04] MEDS: VANCOMYCIN HCL IV SCH ×2 (10:32→22:35)
[2017-07-04] MEDS: NS IV SCH ×2 (10:32→22:35)
[2017-07-04] MEDS: NS 1000 ML 1,000 ML with MVI INJ (ADULT) 10 ML IV SCH ×4 (16:16→18:03)
--- NOTE | 2017-07-04 17:46 | PCM.PROG ---
Progress Note - Progress Note for Day of Date: 07/03/17 - Subjective Subjective: patient has decided to proceed with conservative management. She had a periprosthetic fracture and she is concerned about the middle blood loss and wanted to try conservative management. She is currentily toe-touch weightbearing. Her pain is controlled with oral pain medication. Her surgical incision is clean and dry. We are awaiting protective services social worker to find a place for her rehabilitation. - Past Medical Family Social History Past Med/Fam/Surg Hx: No changes since H&P Allergies: Allergies cefazolin [From Ancef] Allergy (Verified 06/26/17 11:15) ciprofloxacin [From Cipro] Allergy (Verified 06/26/17 11:15) levofloxacin [From Levaquin] Allergy (Verified 05/17/17 12:07) bupropion [From Wellbutrin] Adverse Reaction (Verified 05/17/17 12:07) morphine Adverse Reaction (Verified 05/17/17 12:07) promethazine [From Phenergan] Adverse Reaction (Verified 05/17/17 12:07) - Review of Systems ROS: No change since H&P - Vital Signs and I&O's Vital Signs: Temperature 97.8 F Pulse Rate [Left Brachial] 109 Pulse Rate [Right Brachial] 111 Pulse Rate [Apical] 128 Pulse Rate 98 Respiratory Rate 20 Blood Pressure [Left Arm] 121/75 Blood Pressure [Right Arm] 122/71 Blood Pressure 133/59 O2 Sat by Pulse Oximetry 98 Intake and Output: Intake & Output 07/02/17 07/03/17 07/04/17 07/05/17 11:59 11:59 11:59 11:59 Intake Total 2840 3060 1350 1520 Balance 2840 3060 1350 1520 - Physical Exam Oriented: Normal Eyes: Normal Ear: Normal Nose: Normal Throat: Normal Respiratory: Normal Cardiovascular: Tachycardia : Normal Auscultation: Bowel Sounds: Normal Tenderness: Normal Skin: Wound (SURGICAL WOUND WITH NO S/SX INFECTION NOTED ) Musculoskeletal: Right, Hip, Tender, Instability Psychiatric: Normal Mood Description: Calm Affect: Normal Speech Pattern: Clear, Appropriate - Laboratory and Diagnostics Result Diagrams: 07/04/17 05:53 07/04/17 05:53 Labs: 06/29/17 09:50 Blood Blood Culture - Final 06/29/17 09:33 Blood Blood Culture - Final 06/29/17 11:12 Urine,Clean Catch Urine Culture - Final Laboratory WBC 3.8 X10^3/uL (3.6-10.0) 07/04/17 05:53 RBC 2.64 X10^6/uL (3.5-5.4) L 07/04/17 05:53 Hgb 8.2 g/dL (12.0-16.0) L 07/04/17 05:53 Hct 23.0 % (36.0-47.0) L 07/04/17 05:53 MCV 87.0 fL (80.0-100.0) 07/04/17 05:53 MCH 31.0 pg (27.0-34.0) 07/04/17 05:53 MCHC 35.6 g/dL (33.0-35.0) H 07/04/17 05:53 RDW 14.8 % (11.6-16.5) 07/04/17 05:53 Plt Count 282 X10^3/uL (150.0-450.0) 07/04/17 05:53 MPV 7.2 fL (7.4-11.0) L 07/04/17 05:53 Neut % 66.2 % (42.0-75.0) 07/04/17 05:53 Lymph % 21.4 % (21.0-51.0) 07/04/17 05:53 [place] % 8.1 % (0.0-13.0) 07/04/17 05:53 Eos % 3.3 % (0.9-2.9) H 07/04/17 05:53 Baso % 1.0 % (0.2-1.0) 07/04/17 05:53 Neut # 2.5 x10^3/uL (2.2-4.8) 07/04/17 05:53 Lymph # 0.8 X10^3/uL (1.3-2.9) L 07/04/17 05:53 [place] # 0.3 x10^3/uL (0.3-0.8) 07/04/17 05:53 Eos # 0.1 x10^3/uL (0.0-0.2) 07/04/17 05:53 Baso # 0.0 X10^3/uL (0.0-0.1) 07/04/17 05:53 Absolute Nucleated RBC 0.1 /100WBC 07/04/17 05:53 ESR 20 MM/HOUR (0-20) 06/21/17 16:05 INR Target Range - 06/21/17 16:05 INR 0.99 (0.8-1.3) 06/21/17 16:05 PTT 31.6 SECONDS (22.9-36.5) 06/21/17 16:05 PTT Comment - 06/21/17 16:05 Sodium 140 mmol/L (136-145) 07/04/17 05:53 Corrected Sodium TNP 07/04/17 05:53 Potassium 3.8 mmol/L (3.5-5.1) 07/04/17 05:53 Chloride 106 mmol/L (98-107) 07/04/17 05:53 Carbon Dioxide 27.0 mmol/L (21-32) 07/04/17 05:53 BUN 9 mg/dL (7-18) 07/04/17 05:53 Creatinine 0.60 mg/dL (0.55-1.02) 07/04/17 05:53 Est GFR (MDRD) Af Amer > 60 (>60) 07/04/17 05:53 Est GFR (MDRD) Non-Af > 60 (>60) 07/04/17 05:53 Glucose 99 mg/dL (65-99) 07/04/17 05:53 Calcium 8.8 mg/dL (8.5-10.1) 07/04/17 05:53 Corrected Calcium 9.6 mg/dL (8.5-10.1) 07/04/17 05:53 Magnesium 1.9 mg/dL (1.7-2.9) 07/02/17 00:00 Total Bilirubin 0.60 mg/dL (0.2-1.0) 07/04/17 05:53 AST 21 Units/L (15-37) 07/04/17 05:53 ALT 18 Units/L (12-78) 07/04/17 05:53 Alkaline Phosphatase 86 Units/L (46-116) 07/04/17 05:53 C-Reactive Protein 1.40 mg/L (0-3.0) 06/21/17 16:05 Total Protein 5.8 g/dL (6.4-8.2) L 07/04/17 05:53 Albumin 3.0 g/dL (3.4-5.0) L 07/04/17 05:53 Globulin 2.8 g/dL (2.5-4.5) 07/04/17 05:53 Albumin/Globulin Ratio 1.1 Ratio (1.1-2.1) 07/04/17 05:53 Specimen Type Clean catch urine 06/21/17 16:05 Urine Color Yellow (YELLOW) 06/21/17 16:05 Urine Appearance Hazy (CLEAR) 06/21/17 16:05 Urine pH 5.0 (5.0 - 8.0) 06/21/17 16:05 Ur Specific [place] 1.025 (1.000-1.030) 06/21/17 16:05 Urine Protein Negative (NEGATIVE) 06/21/17 16:05 Urine Glucose (UA) Negative (NEGATIVE) 06/21/17 16:05 Urine Ketones Negative (NEGATIVE) 06/21/17 16:05 Urine Occult Blood Negative (NEGATIVE) 06/21/17 16:05 Urine Nitrite Negative (NEGATIVE) 06/21/17 16:05 Urine Bilirubin Negative (NEGATIVE) 06/21/17 16:05 Urine Urobilinogen 1+ (NORMAL) 06/21/17 16:05 Ur Leukocyte Esterase 1+ (NEGATIVE) 06/21/17 16:05 Urine RBC 0-2 /HPF (NEGATIVE) 06/21/17 16:05 Urine WBC 3-5 /HPF (NEGATIVE) 06/21/17 16:05 Ur Squamous Epith Cells Rare /HPF (NEGATIVE) 06/21/17 16:05 Urine Bacteria Trace /HPF (NEGATIVE) 06/21/17 16:05 Urine Mucus Few /HPF (NEGATIVE) 06/21/17 16:05 Ur Culture Indicated? No/not indicated 06/21/17 16:05 Vancomycin Trough 11.2 ug/mL (15-20) L 07/03/17 20:42 Staph aureus (PCR) Negative (NEGATIVE) 06/21/17 16:05 MRSA (PCR) Negative (NEGATIVE) 06/21/17 16:05 Blood Type O POSITIVE 06/21/17 16:05 Antibody Screen Negative 06/21/17 16:05 Crossmatch See Detail 06/21/17 16:05 - Plan (1) Linda-prosthetic femur fracture at tip of prosthesis Status: Acute Qualifiers: Encounter type: initial encounter Qualified Code(s): M97.8XXA - Periprosthetic fracture around other internal prosthetic joint, initial encounter; Z96.649 - Presence of unspecified artificial hip joint; Z96.649 - Presence of unspecified artificial hip joint Plan: e will plan with conservative management with toe-touch weightbearing. We will see her regularly with follow-up x-rays. If there is no progression of healing or worsening symptoms we proceed with surgical intervention in the form of a cortical strut with the cables and the wires. She understands and will plan same.
[2017-07-04] MEDS: AMBIEN PO SCH (20:46)
--- NOTE | 2017-07-05 00:02 | PCM.PROG ---
Progress Note - Progress Note for Day of Date: 06/30/17 - Subjective Subjective: IS A 52 YEAR OLD PATIENT OF . SHE IS STATUS POST RIGHT TOTAL HIP. SURGERY WAS ON 06/26/17. TODAY, SHE IS ALERT AND ORIENTED , LYING IN BED ON MORNING ROUNDS. SHE CONTINUES WITH COMPLAINTS OF RIGHT HIP PAIN AND NAUSEA THROUGHOUT THE NIGHT AND THIS MORNING. SHE REPORTS THAT NAUSEA HAS SUBSIDED AT THIS TIME. SURGICAL DRESSING TO RIGHT HIP IS NOTED DRY AND INTACT. NO SIGNS/SX INFECTION NOTED TO SITE. ON EXAMINATION, LUNGS ARE NOTED CLEAR TO AUSCULTATION. ABDOMEN IS SOFT, ROUND, AND NON-TENDER WITH NORMAL BOWEL SOUNDS NOTED IN ALL QUADRANTS. HER VITAL SIGNS THIS MORNING ARE 99.5-118-20-96%- 134/79. A CBC AND BMP WERE OBTAINED. ABNORMAL LAB VALUES INCLUDE THE FOLLOWING: RBC 3.17, HGB 9.8, HCT 27.1, POTASSIUM 3.4, BUN 5, CREATININE 0.53, GLUCOSE 114 , CALCIUM 8.3, MAGNESIUM 1.9. PATIENT CONTINUES TO GET OUT OF BED WITH ASSSITANCE OF STAFF AND PHYSICAL THERAPY WITH ORDERS FOR NON-WEIGHT BEARING TO THE RIGHT LEG. PATIENT WAS AFEBRILE THROUGHOUT THE NIGHT. PLANS TO TAKE PATIENT BACK TO SURGERY ON MONDAY FOR REPAIR OF FRACTURE. TODAY, WE WILL START ALBUMIN 25% IV DAILY, OTHERWISE, WE WILL CONTINUE WITH CURRENT PLAN OF CARE. WE PLAN TO FOLLOW UP WITH AM LABS AND CONTINUE TO MONITOR PATIENT. - Past Medical Family Social History Past Med/Fam/Surg Hx: No changes since H&P Allergies: Allergies cefazolin [From Ancef] Allergy (Verified 06/26/17 11:15) ciprofloxacin [From Cipro] Allergy (Verified 06/26/17 11:15) levofloxacin [From Levaquin] Allergy (Verified 05/17/17 12:07) bupropion [From Wellbutrin] Adverse Reaction (Verified 05/17/17 12:07) morphine Adverse Reaction (Verified 05/17/17 12:07) promethazine [From Phenergan] Adverse Reaction (Verified 05/17/17 12:07) - Review of Systems ROS: No change since H&P - Vital Signs and I&O's Vital Signs: Temperature 98.1 F Pulse Rate [Left Brachial] 113 Pulse Rate [Right Brachial] 111 Pulse Rate [Apical] 128 Pulse Rate 71 Respiratory Rate 18 Blood Pressure [Left Arm] 131/75 Blood Pressure [Right Arm] 122/71 Blood Pressure 133/59 O2 Sat by Pulse Oximetry 92 Intake and Output: Intake & Output 07/02/17 07/03/17 07/04/17 07/05/17 11:59 11:59 11:59 11:59 Intake Total 2840 3060 1350 1940 Balance 2840 3060 1350 1940 - Physical Exam Oriented: Normal Eyes: Normal Ear: Normal Nose: Normal Throat: Normal Respiratory: Normal Cardiovascular: Tachycardia : Normal Auscultation: Bowel Sounds: Normal Palpation: Normal Tenderness: Normal Skin: Wound (SURGICAL WOUND WITH NO S/SX INFECTION NOTED ) Musculoskeletal: Right, Hip, Tender, Instability Psychiatric: Normal Mood Description: Calm Affect: Normal Speech Pattern: Clear, Appropriate - Laboratory and Diagnostics Result Diagrams: 07/04/17 05:53 07/04/17 05:53 Labs: 06/29/17 09:50 Blood Blood Culture - Final 06/29/17 09:33 Blood Blood Culture - Final 06/29/17 11:12 Urine,Clean Catch Urine Culture - Final Laboratory WBC 3.8 X10^3/uL (3.6-10.0) 07/04/17 05:53 RBC 2.64 X10^6/uL (3.5-5.4) L 07/04/17 05:53 Hgb 8.2 g/dL (12.0-16.0) L 07/04/17 05:53 Hct 23.0 % (36.0-47.0) L 07/04/17 05:53 MCV 87.0 fL (80.0-100.0) 07/04/17 05:53 MCH 31.0 pg (27.0-34.0) 07/04/17 05:53 MCHC 35.6 g/dL (33.0-35.0) H 07/04/17 05:53 RDW 14.8 % (11.6-16.5) 07/04/17 05:53 Plt Count 282 X10^3/uL (150.0-450.0) 07/04/17 05:53 MPV 7.2 fL (7.4-11.0) L 07/04/17 05:53 Neut % 66.2 % (42.0-75.0) 07/04/17 05:53 Lymph % 21.4 % (21.0-51.0) 07/04/17 05:53 [place] % 8.1 % (0.0-13.0) 07/04/17 05:53 Eos % 3.3 % (0.9-2.9) H 07/04/17 05:53 Baso % 1.0 % (0.2-1.0) 07/04/17 05:53 Neut # 2.5 x10^3/uL (2.2-4.8) 07/04/17 05:53 Lymph # 0.8 X10^3/uL (1.3-2.9) L 07/04/17 05:53 [place] # 0.3 x10^3/uL (0.3-0.8) 07/04/17 05:53 Eos # 0.1 x10^3/uL (0.0-0.2) 07/04/17 05:53 Baso # 0.0 X10^3/uL (0.0-0.1) 07/04/17 05:53 Absolute Nucleated RBC 0.1 /100WBC 07/04/17 05:53 ESR 20 MM/HOUR (0-20) 06/21/17 16:05 INR Target Range - 06/21/17 16:05 INR 0.99 (0.8-1.3) 06/21/17 16:05 PTT 31.6 SECONDS (22.9-36.5) 06/21/17 16:05 PTT Comment - 06/21/17 16:05 Sodium 140 mmol/L (136-145) 07/04/17 05:53 Corrected Sodium TNP 07/04/17 05:53 Potassium 3.8 mmol/L (3.5-5.1) 07/04/17 05:53 Chloride 106 mmol/L (98-107) 07/04/17 05:53 Carbon Dioxide 27.0 mmol/L (21-32) 07/04/17 05:53 BUN 9 mg/dL (7-18) 07/04/17 05:53 Creatinine 0.60 mg/dL (0.55-1.02) 07/04/17 05:53 Est GFR (MDRD) Af Amer > 60 (>60) 07/04/17 05:53 Est GFR (MDRD) Non-Af > 60 (>60) 07/04/17 05:53 Glucose 99 mg/dL (65-99) 07/04/17 05:53 Calcium 8.8 mg/dL (8.5-10.1) 07/04/17 05:53 Corrected Calcium 9.6 mg/dL (8.5-10.1) 07/04/17 05:53 Magnesium 1.9 mg/dL (1.7-2.9) 07/02/17 00:00 Total Bilirubin 0.60 mg/dL (0.2-1.0) 07/04/17 05:53 AST 21 Units/L (15-37) 07/04/17 05:53 ALT 18 Units/L (12-78) 07/04/17 05:53 Alkaline Phosphatase 86 Units/L (46-116) 07/04/17 05:53 C-Reactive Protein 1.40 mg/L (0-3.0) 06/21/17 16:05 Total Protein 5.8 g/dL (6.4-8.2) L 07/04/17 05:53 Albumin 3.0 g/dL (3.4-5.0) L 07/04/17 05:53 Globulin 2.8 g/dL (2.5-4.5) 07/04/17 05:53 Albumin/Globulin Ratio 1.1 Ratio (1.1-2.1) 07/04/17 05:53 Specimen Type Clean catch urine 06/21/17 16:05 Urine Color Yellow (YELLOW) 06/21/17 16:05 Urine Appearance Hazy (CLEAR) 06/21/17 16:05 Urine pH 5.0 (5.0 - 8.0) 06/21/17 16:05 Ur Specific [place] 1.025 (1.000-1.030) 06/21/17 16:05 Urine Protein Negative (NEGATIVE) 06/21/17 16:05 Urine Glucose (UA) Negative (NEGATIVE) 06/21/17 16:05 Urine Ketones Negative (NEGATIVE) 06/21/17 16:05 Urine Occult Blood Negative (NEGATIVE) 06/21/17 16:05 Urine Nitrite Negative (NEGATIVE) 06/21/17 16:05 Urine Bilirubin Negative (NEGATIVE) 06/21/17 16:05 Urine Urobilinogen 1+ (NORMAL) 06/21/17 16:05 Ur Leukocyte Esterase 1+ (NEGATIVE) 06/21/17 16:05 Urine RBC 0-2 /HPF (NEGATIVE) 06/21/17 16:05 Urine WBC 3-5 /HPF (NEGATIVE) 06/21/17 16:05 Ur Squamous Epith Cells Rare /HPF (NEGATIVE) 06/21/17 16:05 Urine Bacteria Trace /HPF (NEGATIVE) 06/21/17 16:05 Urine Mucus Few /HPF (NEGATIVE) 06/21/17 16:05 Ur Culture Indicated? No/not indicated 06/21/17 16:05 Vancomycin Trough 11.2 ug/mL (15-20) L 07/03/17 20:42 Staph aureus (PCR) Negative (NEGATIVE) 06/21/17 16:05 MRSA (PCR) Negative (NEGATIVE) 06/21/17 16:05 Blood Type O POSITIVE 06/21/17 16:05 Antibody Screen Negative 06/21/17 16:05 Crossmatch See Detail 06/21/17 16:05 - Plan (1) Status post total hip replacement, right Status: Acute Plan: PT/OT, DILAUDID 1-2MG IV Q4H PRN, ON Q PUMP, CONTINUE TO MONITOR (2) Hypotension Status: Acute Qualifiers: Hypotension type: postprocedural hypotension Qualified Code(s): I95.81 - Postprocedural hypotension Plan: CONTINUE TO MONITOR (3) Linda-prosthetic femur fracture at tip of prosthesis Status: Acute Qualifiers: Encounter type: initial encounter Qualified Code(s): M97.8XXA - Periprosthetic fracture around other internal prosthetic joint, initial encounter; Z96.649 - Presence of unspecified artificial hip joint; Z96.649 - Presence of unspecified artificial hip joint Plan: SURGICAL REPAIR ON MONDAY, CONTINUE TO MONITOR (4) Hypoalbuminemia due to protein-calorie malnutrition Status: Acute Plan: ALBUMIN 25% IV DAILY, CONTINUE TO MONITOR
--- NOTE | 2017-07-05 00:45 | PCM.PROG ---
Progress Note - Progress Note for Day of Date: 07/02/17 - Subjective Subjective: IS A 52 YEAR OLD PATIENT OF . SHE IS STATUS POST RIGHT TOTAL HIP. SURGERY WAS ON 06/26/17. TODAY, SHE IS ALERT AND ORIENTED , LYING IN BED ON MORNING ROUNDS. SHE CONTINUES WITH COMPLAINTS OF RIGHT HIP PAIN , BUT REPORTS THAT PAIN IS IMPROVING. SHE DENIES NAUSEA TODAY, BUT CONTINUES WITH WEAKNESS. SURGICAL DRESSING TO RIGHT HIP IS NOTED DRY AND INTACT. NO SIGNS/SX INFECTION NOTED TO SITE. ON EXAMINATION, LUNGS ARE NOTED CLEAR TO AUSCULTATION. ABDOMEN IS SOFT, ROUND, AND NON-TENDER WITH NORMAL BOWEL SOUNDS NOTED IN ALL QUADRANTS. HER VITAL SIGNS THIS MORNING ARE 99.1-99-20-96%- 130/81. A CBC AND BMP WERE OBTAINED. ABNORMAL LAB VALUES INCLUDE THE FOLLOWING: RBC 2.87, HGB 8.8, HCT 24.7, POTASSIUM 3.2, BUN 5, CREATININE 0.51, TOTAL PROTEIN 5.6, ALBUMIN 2.5. TODAY, WE WILL CONTINUE WITH CURRENT PLAN OF CARE. WE PLAN TO FOLLOW UP WITH AM LABS AND CONTINUE TO MONITOR PATIENT. - Past Medical Family Social History Past Med/Fam/Surg Hx: No changes since H&P Allergies: Allergies cefazolin [From Ancef] Allergy (Verified 06/26/17 11:15) ciprofloxacin [From Cipro] Allergy (Verified 06/26/17 11:15) levofloxacin [From Levaquin] Allergy (Verified 05/17/17 12:07) bupropion [From Wellbutrin] Adverse Reaction (Verified 05/17/17 12:07) morphine Adverse Reaction (Verified 05/17/17 12:07) promethazine [From Phenergan] Adverse Reaction (Verified 05/17/17 12:07) - Review of Systems ROS: No change since H&P - Vital Signs and I&O's Vital Signs: Temperature 98.1 F Pulse Rate [Left Brachial] 113 Pulse Rate [Right Brachial] 111 Pulse Rate [Apical] 128 Pulse Rate 71 Respiratory Rate 18 Blood Pressure [Left Arm] 131/75 Blood Pressure [Right Arm] 122/71 Blood Pressure 133/59 O2 Sat by Pulse Oximetry 92 Intake and Output: Intake & Output 07/02/17 07/03/17 07/04/17 07/05/17 11:59 11:59 11:59 11:59 Intake Total 2840 3060 1350 1940 Balance 2840 3060 1350 1940 - Physical Exam Oriented: Normal Eyes: Normal Ear: Normal Nose: Normal Throat: Normal Respiratory: Normal Cardiovascular: Tachycardia : Normal Auscultation: Bowel Sounds: Normal Palpation: Normal Tenderness: Normal Skin: Wound (SURGICAL WOUND WITH NO S/SX INFECTION NOTED ) Musculoskeletal: Right, Hip, Tender, Instability Psychiatric: Normal Mood Description: Calm Affect: Normal Speech Pattern: Clear, Appropriate - Laboratory and Diagnostics Result Diagrams: 07/04/17 05:53 07/04/17 05:53 Labs: 06/29/17 09:50 Blood Blood Culture - Final 06/29/17 09:33 Blood Blood Culture - Final 06/29/17 11:12 Urine,Clean Catch Urine Culture - Final Laboratory WBC 3.8 X10^3/uL (3.6-10.0) 07/04/17 05:53 RBC 2.64 X10^6/uL (3.5-5.4) L 07/04/17 05:53 Hgb 8.2 g/dL (12.0-16.0) L 07/04/17 05:53 Hct 23.0 % (36.0-47.0) L 07/04/17 05:53 MCV 87.0 fL (80.0-100.0) 07/04/17 05:53 MCH 31.0 pg (27.0-34.0) 07/04/17 05:53 MCHC 35.6 g/dL (33.0-35.0) H 07/04/17 05:53 RDW 14.8 % (11.6-16.5) 07/04/17 05:53 Plt Count 282 X10^3/uL (150.0-450.0) 07/04/17 05:53 MPV 7.2 fL (7.4-11.0) L 07/04/17 05:53 Neut % 66.2 % (42.0-75.0) 07/04/17 05:53 Lymph % 21.4 % (21.0-51.0) 07/04/17 05:53 [place] % 8.1 % (0.0-13.0) 07/04/17 05:53 Eos % 3.3 % (0.9-2.9) H 07/04/17 05:53 Baso % 1.0 % (0.2-1.0) 07/04/17 05:53 Neut # 2.5 x10^3/uL (2.2-4.8) 07/04/17 05:53 Lymph # 0.8 X10^3/uL (1.3-2.9) L 07/04/17 05:53 [place] # 0.3 x10^3/uL (0.3-0.8) 07/04/17 05:53 Eos # 0.1 x10^3/uL (0.0-0.2) 07/04/17 05:53 Baso # 0.0 X10^3/uL (0.0-0.1) 07/04/17 05:53 Absolute Nucleated RBC 0.1 /100WBC 07/04/17 05:53 ESR 20 MM/HOUR (0-20) 06/21/17 16:05 INR Target Range - 06/21/17 16:05 INR 0.99 (0.8-1.3) 06/21/17 16:05 PTT 31.6 SECONDS (22.9-36.5) 06/21/17 16:05 PTT Comment - 06/21/17 16:05 Sodium 140 mmol/L (136-145) 07/04/17 05:53 Corrected Sodium TNP 07/04/17 05:53 Potassium 3.8 mmol/L (3.5-5.1) 07/04/17 05:53 Chloride 106 mmol/L (98-107) 07/04/17 05:53 Carbon Dioxide 27.0 mmol/L (21-32) 07/04/17 05:53 BUN 9 mg/dL (7-18) 07/04/17 05:53 Creatinine 0.60 mg/dL (0.55-1.02) 07/04/17 05:53 Est GFR (MDRD) Af Amer > 60 (>60) 07/04/17 05:53 Est GFR (MDRD) Non-Af > 60 (>60) 07/04/17 05:53 Glucose 99 mg/dL (65-99) 07/04/17 05:53 Calcium 8.8 mg/dL (8.5-10.1) 07/04/17 05:53 Corrected Calcium 9.6 mg/dL (8.5-10.1) 07/04/17 05:53 Magnesium 1.9 mg/dL (1.7-2.9) 07/02/17 00:00 Total Bilirubin 0.60 mg/dL (0.2-1.0) 07/04/17 05:53 AST 21 Units/L (15-37) 07/04/17 05:53 ALT 18 Units/L (12-78) 07/04/17 05:53 Alkaline Phosphatase 86 Units/L (46-116) 07/04/17 05:53 C-Reactive Protein 1.40 mg/L (0-3.0) 06/21/17 16:05 Total Protein 5.8 g/dL (6.4-8.2) L 07/04/17 05:53 Albumin 3.0 g/dL (3.4-5.0) L 07/04/17 05:53 Globulin 2.8 g/dL (2.5-4.5) 07/04/17 05:53 Albumin/Globulin Ratio 1.1 Ratio (1.1-2.1) 07/04/17 05:53 Specimen Type Clean catch urine 06/21/17 16:05 Urine Color Yellow (YELLOW) 06/21/17 16:05 Urine Appearance Hazy (CLEAR) 06/21/17 16:05 Urine pH 5.0 (5.0 - 8.0) 06/21/17 16:05 Ur Specific [place] 1.025 (1.000-1.030) 06/21/17 16:05 Urine Protein Negative (NEGATIVE) 06/21/17 16:05 Urine Glucose (UA) Negative (NEGATIVE) 06/21/17 16:05 Urine Ketones Negative (NEGATIVE) 06/21/17 16:05 Urine Occult Blood Negative (NEGATIVE) 06/21/17 16:05 Urine Nitrite Negative (NEGATIVE) 06/21/17 16:05 Urine Bilirubin Negative (NEGATIVE) 06/21/17 16:05 Urine Urobilinogen 1+ (NORMAL) 06/21/17 16:05 Ur Leukocyte Esterase 1+ (NEGATIVE) 06/21/17 16:05 Urine RBC 0-2 /HPF (NEGATIVE) 06/21/17 16:05 Urine WBC 3-5 /HPF (NEGATIVE) 06/21/17 16:05 Ur Squamous Epith Cells Rare /HPF (NEGATIVE) 06/21/17 16:05 Urine Bacteria Trace /HPF (NEGATIVE) 06/21/17 16:05 Urine Mucus Few /HPF (NEGATIVE) 06/21/17 16:05 Ur Culture Indicated? No/not indicated 06/21/17 16:05 Vancomycin Trough 11.2 ug/mL (15-20) L 07/03/17 20:42 Staph aureus (PCR) Negative (NEGATIVE) 06/21/17 16:05 MRSA (PCR) Negative (NEGATIVE) 06/21/17 16:05 Blood Type O POSITIVE 06/21/17 16:05 Antibody Screen Negative 06/21/17 16:05 Crossmatch See Detail 06/21/17 16:05 - Plan (1) Status post total hip replacement, right Status: Acute Plan: PT/OT, DILAUDID 1-2MG IV Q4H PRN, ON Q PUMP, CONTINUE TO MONITOR (2) Hypotension Status: Acute Qualifiers: Hypotension type: postprocedural hypotension Qualified Code(s): I95.81 - Postprocedural hypotension Plan: CONTINUE TO MONITOR (3) Linda-prosthetic femur fracture at tip of prosthesis Status: Acute Qualifiers: Encounter type: initial encounter Qualified Code(s): M97.8XXA - Periprosthetic fracture around other internal prosthetic joint, initial encounter; Z96.649 - Presence of unspecified artificial hip joint; Z96.649 - Presence of unspecified artificial hip joint Plan: SURGICAL REPAIR ON MONDAY, CONTINUE TO MONITOR (4) Hypoalbuminemia due to protein-calorie malnutrition Status: Acute Plan: ALBUMIN 25% IV DAILY, CONTINUE TO MONITOR
--- NOTE | 2017-07-05 00:53 | PCM.PROG ---
Progress Note - Progress Note for Day of Date: 07/02/17 - Subjective Subjective: IS A 52 YEAR OLD PATIENT OF . SHE IS STATUS POST RIGHT TOTAL HIP. SURGERY WAS ON 06/26/17. TODAY, SHE IS ALERT AND ORIENTED , SITTTING UP IN THE RECLINER ON MORNING ROUNDS. PATIENTS FAMILY IS AT BEDSIDE. SHE CONTINUES WITH COMPLAINTS OF RIGHT HIP PAIN, NAUSEA, AND WEAKNESS. SHE IS ALSO NOTED WITH COMPAINTS OF ANXIETY TODAY. PATIENT REPORTS THAT SHE HAS SEVERAL STRESSORS OUTSIDE OF THE HOSPITAL. SURGICAL DRESSING TO RIGHT HIP IS NOTED DRY AND INTACT. NO SIGNS/SX INFECTION NOTED TO SITE. ON EXAMINATION, LUNGS ARE NOTED CLEAR TO AUSCULTATION. ABDOMEN IS SOFT, ROUND, AND NON-TENDER WITH NORMAL BOWEL SOUNDS NOTED IN ALL QUADRANTS. HER VITAL SIGNS THIS MORNING ARE 98.0-106-20-97%-136/77. A CBC AND BMP WERE OBTAINED. ABNORMAL LAB VALUES INCLUDE THE FOLLOWING: RBC 2.88, HGB 8.8, HCT 24.9, POTASSIUM 3.4, TOTAL PROTEIN 5.4, ALBUMIN 2.8. TODAY, WE WILL START ENSURE 1 CAN QID AND CONSULT WITH PHARMACY ABOUT INCREASING THE DOSE OF VANCOMYCIN. WE WILL CONTINUE TO ADMINISTER NAUSEA AND ANXIETY MEDICATIONS. OTHERWISE, WE WILL CONTINUE WITH CURRENT PLAN OF CARE. WE PLAN TO FOLLOW UP WITH AM LABS AND CONTINUE TO MONITOR PATIENT. - Past Medical Family Social History Past Med/Fam/Surg Hx: No changes since H&P Allergies: Allergies cefazolin [From Ancef] Allergy (Verified 06/26/17 11:15) ciprofloxacin [From Cipro] Allergy (Verified 06/26/17 11:15) levofloxacin [From Levaquin] Allergy (Verified 05/17/17 12:07) bupropion [From Wellbutrin] Adverse Reaction (Verified 05/17/17 12:07) morphine Adverse Reaction (Verified 05/17/17 12:07) promethazine [From Phenergan] Adverse Reaction (Verified 05/17/17 12:07) - Review of Systems ROS: No change since H&P - Vital Signs and I&O's Vital Signs: Temperature 98.1 F Pulse Rate [Left Brachial] 113 Pulse Rate [Right Brachial] 111 Pulse Rate [Apical] 128 Pulse Rate 71 Respiratory Rate 18 Blood Pressure [Left Arm] 131/75 Blood Pressure [Right Arm] 122/71 Blood Pressure 133/59 O2 Sat by Pulse Oximetry 92 Intake and Output: Intake & Output 07/02/17 07/03/17 07/04/17 07/05/17 11:59 11:59 11:59 11:59 Intake Total 2840 3060 1350 1940 Balance 2840 3060 1350 1940 - Physical Exam Oriented: Normal Eyes: Normal Ear: Normal Nose: Normal Throat: Normal Respiratory: Normal Cardiovascular: Tachycardia : Normal Auscultation: Bowel Sounds: Normal Palpation: Normal Tenderness: Normal Skin: Wound (SURGICAL WOUND WITH NO S/SX INFECTION NOTED ) Musculoskeletal: Right, Hip, Tender, Instability Psychiatric: Normal Mood Description: Calm Affect: Normal Speech Pattern: Clear, Appropriate - Laboratory and Diagnostics Result Diagrams: 07/04/17 05:53 07/04/17 05:53 Labs: 06/29/17 09:50 Blood Blood Culture - Final 06/29/17 09:33 Blood Blood Culture - Final 06/29/17 11:12 Urine,Clean Catch Urine Culture - Final Laboratory WBC 3.8 X10^3/uL (3.6-10.0) 07/04/17 05:53 RBC 2.64 X10^6/uL (3.5-5.4) L 07/04/17 05:53 Hgb 8.2 g/dL (12.0-16.0) L 07/04/17 05:53 Hct 23.0 % (36.0-47.0) L 07/04/17 05:53 MCV 87.0 fL (80.0-100.0) 07/04/17 05:53 MCH 31.0 pg (27.0-34.0) 07/04/17 05:53 MCHC 35.6 g/dL (33.0-35.0) H 07/04/17 05:53 RDW 14.8 % (11.6-16.5) 07/04/17 05:53 Plt Count 282 X10^3/uL (150.0-450.0) 07/04/17 05:53 MPV 7.2 fL (7.4-11.0) L 07/04/17 05:53 Neut % 66.2 % (42.0-75.0) 07/04/17 05:53 Lymph % 21.4 % (21.0-51.0) 07/04/17 05:53 [place] % 8.1 % (0.0-13.0) 07/04/17 05:53 Eos % 3.3 % (0.9-2.9) H 07/04/17 05:53 Baso % 1.0 % (0.2-1.0) 07/04/17 05:53 Neut # 2.5 x10^3/uL (2.2-4.8) 07/04/17 05:53 Lymph # 0.8 X10^3/uL (1.3-2.9) L 07/04/17 05:53 [place] # 0.3 x10^3/uL (0.3-0.8) 07/04/17 05:53 Eos # 0.1 x10^3/uL (0.0-0.2) 07/04/17 05:53 Baso # 0.0 X10^3/uL (0.0-0.1) 07/04/17 05:53 Absolute Nucleated RBC 0.1 /100WBC 07/04/17 05:53 ESR 20 MM/HOUR (0-20) 06/21/17 16:05 INR Target Range - 06/21/17 16:05 INR 0.99 (0.8-1.3) 06/21/17 16:05 PTT 31.6 SECONDS (22.9-36.5) 06/21/17 16:05 PTT Comment - 06/21/17 16:05 Sodium 140 mmol/L (136-145) 07/04/17 05:53 Corrected Sodium TNP 07/04/17 05:53 Potassium 3.8 mmol/L (3.5-5.1) 07/04/17 05:53 Chloride 106 mmol/L (98-107) 07/04/17 05:53 Carbon Dioxide 27.0 mmol/L (21-32) 07/04/17 05:53 BUN 9 mg/dL (7-18) 07/04/17 05:53 Creatinine 0.60 mg/dL (0.55-1.02) 07/04/17 05:53 Est GFR (MDRD) Af Amer > 60 (>60) 07/04/17 05:53 Est GFR (MDRD) Non-Af > 60 (>60) 07/04/17 05:53 Glucose 99 mg/dL (65-99) 07/04/17 05:53 Calcium 8.8 mg/dL (8.5-10.1) 07/04/17 05:53 Corrected Calcium 9.6 mg/dL (8.5-10.1) 07/04/17 05:53 Magnesium 1.9 mg/dL (1.7-2.9) 07/02/17 00:00 Total Bilirubin 0.60 mg/dL (0.2-1.0) 07/04/17 05:53 AST 21 Units/L (15-37) 07/04/17 05:53 ALT 18 Units/L (12-78) 07/04/17 05:53 Alkaline Phosphatase 86 Units/L (46-116) 07/04/17 05:53 C-Reactive Protein 1.40 mg/L (0-3.0) 06/21/17 16:05 Total Protein 5.8 g/dL (6.4-8.2) L 07/04/17 05:53 Albumin 3.0 g/dL (3.4-5.0) L 07/04/17 05:53 Globulin 2.8 g/dL (2.5-4.5) 07/04/17 05:53 Albumin/Globulin Ratio 1.1 Ratio (1.1-2.1) 07/04/17 05:53 Specimen Type Clean catch urine 06/21/17 16:05 Urine Color Yellow (YELLOW) 06/21/17 16:05 Urine Appearance Hazy (CLEAR) 06/21/17 16:05 Urine pH 5.0 (5.0 - 8.0) 06/21/17 16:05 Ur Specific [place] 1.025 (1.000-1.030) 06/21/17 16:05 Urine Protein Negative (NEGATIVE) 06/21/17 16:05 Urine Glucose (UA) Negative (NEGATIVE) 06/21/17 16:05 Urine Ketones Negative (NEGATIVE) 06/21/17 16:05 Urine Occult Blood Negative (NEGATIVE) 06/21/17 16:05 Urine Nitrite Negative (NEGATIVE) 06/21/17 16:05 Urine Bilirubin Negative (NEGATIVE) 06/21/17 16:05 Urine Urobilinogen 1+ (NORMAL) 06/21/17 16:05 Ur Leukocyte Esterase 1+ (NEGATIVE) 06/21/17 16:05 Urine RBC 0-2 /HPF (NEGATIVE) 06/21/17 16:05 Urine WBC 3-5 /HPF (NEGATIVE) 06/21/17 16:05 Ur Squamous Epith Cells Rare /HPF (NEGATIVE) 06/21/17 16:05 Urine Bacteria Trace /HPF (NEGATIVE) 06/21/17 16:05 Urine Mucus Few /HPF (NEGATIVE) 06/21/17 16:05 Ur Culture Indicated? No/not indicated 06/21/17 16:05 Vancomycin Trough 11.2 ug/mL (15-20) L 07/03/17 20:42 Staph aureus (PCR) Negative (NEGATIVE) 06/21/17 16:05 MRSA (PCR) Negative (NEGATIVE) 06/21/17 16:05 Blood Type O POSITIVE 06/21/17 16:05 Antibody Screen Negative 06/21/17 16:05 Crossmatch See Detail 06/21/17 16:05 - Plan (1) Status post total hip replacement, right Status: Acute Plan: PT/OT, DILAUDID 1-2MG IV Q4H PRN, ON Q PUMP, CONTINUE TO MONITOR (2) Hypotension Status: Acute Qualifiers: Hypotension type: postprocedural hypotension Qualified Code(s): I95.81 - Postprocedural hypotension Plan: CONTINUE TO MONITOR (3) Linda-prosthetic femur fracture at tip of prosthesis Status: Acute Qualifiers: Encounter type: initial encounter Qualified Code(s): M97.8XXA - Periprosthetic fracture around other internal prosthetic joint, initial encounter; Z96.649 - Presence of unspecified artificial hip joint; Z96.649 - Presence of unspecified artificial hip joint Plan: SURGICAL REPAIR ON MONDAY, CONTINUE TO MONITOR (4) Hypoalbuminemia due to protein-calorie malnutrition Status: Acute Plan: ALBUMIN 25% IV DAILY, CONTINUE TO MONITOR
[2017-07-05] MEDS: PERCOCET TAB 5/325 MG PO PRN ×3 (03:01→13:44)
[2017-07-05 05:34] LABS: BASOPHILS % (AUTO) 0.4 % (0.2-1.0); EOSINOPHILS # (AUTO) 0.1 x10^3/uL (0.0-0.2); EOSINOPHILS % (AUTO) 2.8 % (0.9-2.9); HEMATOCRIT 22.4 % (36.0-47.0); LYMPHOCYTES # (AUTO) 0.6 X10^3/uL (1.3-2.9); MEAN CORPUSCULAR HEMOGLOBIN 31.4 pg (27.0-34.0); MEAN CORPUSCULAR HGB CONC 35.7 g/dL (33.0-35.0); MONOCYTES # (AUTO) 0.3 x10^3/uL (0.3-0.8); MONOCYTES % (AUTO) 7.8 % (0.0-13.0); NEUTROPHILS # (AUTO) 2.9 x10^3/uL (2.2-4.8); PLATELET COUNT 282 X10^3/uL (150.0-450.0); RED BLOOD COUNT 2.55 X10^6/uL (3.5-5.4); RED CELL DISTRIBUTION WIDTH 14.6 % (11.6-16.5); WHITE BLOOD COUNT 3.9 X10^3/uL (3.6-10.0)
[2017-07-05 05:47] LABS: ALANINE AMINOTRANSFERASE 18 Units/L (12-78); ALBUMIN 3.4 g/dL (3.4-5.0); ALKALINE PHOSPHATASE 90 Units/L (46-116); ASPARTATE AMINO TRANSFERASE 25 Units/L (15-37); BLOOD UREA NITROGEN 9 mg/dL (7-18); CALCIUM 8.9 mg/dL (8.5-10.1); CARBON DIOXIDE 26.3 mmol/L (21-32); CHLORIDE 104 mmol/L (98-107); CREATININE 0.56 mg/dL (0.55-1.02); SODIUM 138 mmol/L (136-145); TOTAL PROTEIN 6.3 g/dL (6.4-8.2); eGFR BLACK RACES > 60 (>60); eGFR NON BLACK RACES > 60 (>60)
[2017-07-05] MEDS: ALBUMIN HUMAN 25%- 100ML 100 ML IV SCH (08:32)
[2017-07-05] MEDS: COLACE CAP 100 MG PO SCH (08:33)
[2017-07-05] MEDS: PROTONIX INJ 40 MG VIAL IVP SCH (08:33)
[2017-07-05] MEDS: NYSTATIN SUSP PO SCH ×2 (08:34→12:25)
[2017-07-05] MEDS: SOMA TAB 350 MG PO SCH (08:34)
[2017-07-05] MEDS: PEPCID 20 MG IV PREMIX* 20 MG/50 ML BAG IV SCH (09:16)
[2017-07-05] MEDS: SPIKE MINIBAG IV SCH (09:24)
[2017-07-05] MEDS: NS IV SCH (09:24)
[2017-07-05] MEDS: VANCOMYCIN HCL IV SCH (09:24)
[2017-07-05 12:10] VITALS: BP 113/59
--- NOTE | 2017-07-05 20:42 | PCM.PROG ---
Progress Note - Progress Note for Day of Date: 07/03/17 - Subjective Subjective: IS A 52 YEAR OLD PATIENT OF . SHE IS STATUS POST RIGHT TOTAL HIP. SURGERY WAS ON 06/26/17. TODAY, SHE IS ALERT AND ORIENTED , SITTTING UP IN THE RECLINER ON MORNING ROUNDS. PATIENTS FAMILY IS AT BEDSIDE. PATIENT CONTINUES WITH COMPLAINTS OF WEAKNESS, BUT REPORTS FEELING BETTER THAN YESTERDAY. SURGICAL DRESSING TO RIGHT HIP IS NOTED DRY AND INTACT. NO SIGNS/SX INFECTION NOTED TO SITE. ON EXAMINATION, LUNGS ARE NOTED CLEAR TO AUSCULTATION. ABDOMEN IS SOFT, ROUND, AND NON-TENDER WITH NORMAL BOWEL SOUNDS NOTED IN ALL QUADRANTS. HER VITAL SIGNS THIS MORNING ARE 98.2-96-18-93%-115/68. A CBC AND BMP WERE OBTAINED. ABNORMAL LAB VALUES INCLUDE THE FOLLOWING: RBC 2.60 , HGB 8.1, HCT 22.6, CREATININE 0.53, CALCIUM 8.4, TOTAL PROTEIN 5.4, ALBUMIN 2.8. TODAY, WE WILL ADD MVI TO IV FLUIDS AND START A ZOFRAN COCKTAIL Q8H PRN FOR NAUSEA. OTHERWISE, WE WILL CONTINUE WITH CURRENT PLAN OF CARE. PHYSICAL THERAPY CONTINUES TO WORK WITH PATIENT. WE PLAN TO FOLLOW UP WITH AM LABS AND CONTINUE TO MONITOR PATIENT. - Past Medical Family Social History Past Med/Fam/Surg Hx: No changes since H&P Allergies: Allergies cefazolin [From Ancef] Allergy (Verified 06/26/17 11:15) ciprofloxacin [From Cipro] Allergy (Verified 06/26/17 11:15) levofloxacin [From Levaquin] Allergy (Verified 05/17/17 12:07) bupropion [From Wellbutrin] Adverse Reaction (Verified 05/17/17 12:07) morphine Adverse Reaction (Verified 05/17/17 12:07) promethazine [From Phenergan] Adverse Reaction (Verified 05/17/17 12:07) - Review of Systems ROS: No change since H&P - Vital Signs and I&O's Vital Signs: Temperature 98.0 F Pulse Rate [Left Brachial] 115 Pulse Rate [Right Brachial] 111 Pulse Rate [Apical] 128 Pulse Rate 71 Respiratory Rate 20 Blood Pressure [Left Arm] 123/69 Blood Pressure [Right Arm] 113/59 Blood Pressure 133/59 O2 Sat by Pulse Oximetry 95 Intake and Output: Intake & Output 10/23/17 10/24/17 10/25/17 10/26/17 11:59 11:59 11:59 11:59 Intake Total 3060 1350 2540 610 Balance 3060 1350 2540 610 - Physical Exam Oriented: Normal Eyes: Normal Ear: Normal Nose: Normal Throat: Normal Respiratory: Normal Cardiovascular: Tachycardia : Normal Auscultation: Bowel Sounds: Normal Palpation: Normal Tenderness: Normal Skin: Wound (SURGICAL WOUND WITH NO S/SX INFECTION NOTED ) Musculoskeletal: Right, Hip, Tender, Instability Psychiatric: Normal Mood Description: Calm Affect: Normal Speech Pattern: Clear, Appropriate - Laboratory and Diagnostics Result Diagrams: 07/05/17 04:55 07/05/17 04:55 Labs: 06/29/17 09:50 Blood Blood Culture - Final 06/29/17 09:33 Blood Blood Culture - Final 06/29/17 11:12 Urine,Clean Catch Urine Culture - Final Laboratory WBC 3.9 X10^3/uL (3.6-10.0) 07/05/17 04:55 RBC 2.55 X10^6/uL (3.5-5.4) L 07/05/17 04:55 Hgb 8.0 g/dL (12.0-16.0) L 07/05/17 04:55 Hct 22.4 % (36.0-47.0) L 07/05/17 04:55 MCV 88.0 fL (80.0-100.0) 07/05/17 04:55 MCH 31.4 pg (27.0-34.0) 07/05/17 04:55 MCHC 35.7 g/dL (33.0-35.0) H 07/05/17 04:55 RDW 14.6 % (11.6-16.5) 07/05/17 04:55 Plt Count 282 X10^3/uL (150.0-450.0) 07/05/17 04:55 MPV 7.0 fL (7.4-11.0) L 07/05/17 04:55 Neut % 74.0 % (42.0-75.0) 07/05/17 04:55 Lymph % 15.0 % (21.0-51.0) L 07/05/17 04:55 [place] % 7.8 % (0.0-13.0) 07/05/17 04:55 Eos % 2.8 % (0.9-2.9) 07/05/17 04:55 Baso % 0.4 % (0.2-1.0) 07/05/17 04:55 Neut # 2.9 x10^3/uL (2.2-4.8) 07/05/17 04:55 Lymph # 0.6 X10^3/uL (1.3-2.9) L 07/05/17 04:55 [place] # 0.3 x10^3/uL (0.3-0.8) 07/05/17 04:55 Eos # 0.1 x10^3/uL (0.0-0.2) 07/05/17 04:55 Baso # 0.0 X10^3/uL (0.0-0.1) 07/05/17 04:55 Absolute Nucleated RBC 0.0 /100WBC 07/05/17 04:55 ESR 20 MM/HOUR (0-20) 06/21/17 16:05 INR Target Range - 06/21/17 16:05 INR 0.99 (0.8-1.3) 06/21/17 16:05 PTT 31.6 SECONDS (22.9-36.5) 06/21/17 16:05 PTT Comment - 06/21/17 16:05 Sodium 138 mmol/L (136-145) 07/05/17 04:55 Corrected Sodium TNP 07/05/17 04:55 Potassium 3.7 mmol/L (3.5-5.1) 07/05/17 04:55 Chloride 104 mmol/L (98-107) 07/05/17 04:55 Carbon Dioxide 26.3 mmol/L (21-32) 07/05/17 04:55 BUN 9 mg/dL (7-18) 07/05/17 04:55 Creatinine 0.56 mg/dL (0.55-1.02) 07/05/17 04:55 Est GFR (MDRD) Af Amer > 60 (>60) 07/05/17 04:55 Est GFR (MDRD) Non-Af > 60 (>60) 07/05/17 04:55 Glucose 109 mg/dL (65-99) H 07/05/17 04:55 Calcium 8.9 mg/dL (8.5-10.1) 07/05/17 04:55 Corrected Calcium TNP 07/05/17 04:55 Magnesium 1.9 mg/dL (1.7-2.9) 07/02/17 00:00 Total Bilirubin 1.00 mg/dL (0.2-1.0) 07/05/17 04:55 AST 25 Units/L (15-37) 07/05/17 04:55 ALT 18 Units/L (12-78) 07/05/17 04:55 Alkaline Phosphatase 90 Units/L (46-116) 07/05/17 04:55 C-Reactive Protein 1.40 mg/L (0-3.0) 06/21/17 16:05 Total Protein 6.3 g/dL (6.4-8.2) L 07/05/17 04:55 Albumin 3.4 g/dL (3.4-5.0) 07/05/17 04:55 Globulin 2.9 g/dL (2.5-4.5) 07/05/17 04:55 Albumin/Globulin Ratio 1.2 Ratio (1.1-2.1) 07/05/17 04:55 Specimen Type Clean catch urine 06/21/17 16:05 Urine Color Yellow (YELLOW) 06/21/17 16:05 Urine Appearance Hazy (CLEAR) 06/21/17 16:05 Urine pH 5.0 (5.0 - 8.0) 06/21/17 16:05 Ur Specific [place] 1.025 (1.000-1.030) 06/21/17 16:05 Urine Protein Negative (NEGATIVE) 06/21/17 16:05 Urine Glucose (UA) Negative (NEGATIVE) 06/21/17 16:05 Urine Ketones Negative (NEGATIVE) 06/21/17 16:05 Urine Occult Blood Negative (NEGATIVE) 06/21/17 16:05 Urine Nitrite Negative (NEGATIVE) 06/21/17 16:05 Urine Bilirubin Negative (NEGATIVE) 06/21/17 16:05 Urine Urobilinogen 1+ (NORMAL) 06/21/17 16:05 Ur Leukocyte Esterase 1+ (NEGATIVE) 06/21/17 16:05 Urine RBC 0-2 /HPF (NEGATIVE) 06/21/17 16:05 Urine WBC 3-5 /HPF (NEGATIVE) 06/21/17 16:05 Ur Squamous Epith Cells Rare /HPF (NEGATIVE) 06/21/17 16:05 Urine Bacteria Trace /HPF (NEGATIVE) 06/21/17 16:05 Urine Mucus Few /HPF (NEGATIVE) 06/21/17 16:05 Ur Culture Indicated? No/not indicated 06/21/17 16:05 Vancomycin Trough 11.2 ug/mL (15-20) L 07/03/17 20:42 Staph aureus (PCR) Negative (NEGATIVE) 06/21/17 16:05 MRSA (PCR) Negative (NEGATIVE) 06/21/17 16:05 Blood Type O POSITIVE 06/21/17 16:05 Antibody Screen Negative 06/21/17 16:05 Crossmatch See Detail 06/21/17 16:05 - Plan (1) Status post total hip replacement, right Status: Acute Plan: PT/OT, DILAUDID 1-2MG IV Q4H PRN, ON Q PUMP, CONTINUE TO MONITOR (2) Hypotension Status: Acute Qualifiers: Hypotension type: postprocedural hypotension Qualified Code(s): I95.81 - Postprocedural hypotension Plan: CONTINUE TO MONITOR (3) Linda-prosthetic femur fracture at tip of prosthesis Status: Acute Qualifiers: Encounter type: initial encounter Qualified Code(s): M97.8XXA - Periprosthetic fracture around other internal prosthetic joint, initial encounter; Z96.649 - Presence of unspecified artificial hip joint; Z96.649 - Presence of unspecified artificial hip joint Plan: SURGICAL REPAIR ON MONDAY, CONTINUE TO MONITOR (4) Hypoalbuminemia due to protein-calorie malnutrition Status: Acute Plan: ALBUMIN 25% IV DAILY, CONTINUE TO MONITOR (5) Weakness Status: Acute Plan: ADD MVI TO IV FLUIDS, ALBUMIN 25% IV DAILY, CONTINUE WITH PHYSICAL THERAPY , CONTINUE TO MONITOR
--- NOTE | 2017-07-05 20:49 | PCM.PROG ---
Progress Note - Progress Note for Day of Date: 07/04/17 - Subjective Subjective: IS A 52 YEAR OLD PATIENT OF . SHE IS STATUS POST RIGHT TOTAL HIP. SURGERY WAS ON 06/26/17. TODAY, SHE IS ALERT AND ORIENTED , SITTTING UP IN THE RECLINER ON MORNING ROUNDS. PATIENTS FAMILY IS AT BEDSIDE. PATIENT DENIES COMPLAINTS ON MORNING ROUNDS AND REPORTS FEELING WELL. AND PATIENT DISCUSSED PLAN FOR SURGERY WITH PATIENT. PATIENT REPORTS THAT SHE WISHES TO HOLD OFF ON SURGERY AT THIS TIME. PATIENT PLANS TO CONTINUE TO FOLLOW UP WITH AND ADDRESS SURGICAL INTERVENTION IN THE FURTURE IF THE NEED ARISES. SURGICAL DRESSING TO RIGHT HIP IS NOTED DRY AND INTACT. NO SIGNS/SX INFECTION NOTED TO SITE. ON EXAMINATION, LUNGS ARE NOTED CLEAR TO AUSCULTATION. ABDOMEN IS SOFT, ROUND, AND NON-TENDER WITH NORMAL BOWEL SOUNDS NOTED IN ALL QUADRANTS. HER VITAL SIGNS THIS MORNING ARE 97.8-111-20-98%-122/ 77. A CBC AND BMP WERE OBTAINED. ABNORMAL LAB VALUES INCLUDE THE FOLLOWING: RBC 2.64, HGB 8.2, HCT 23, TOTAL PROTEIN 5.8, ALBUMIN 3.0. PATIENT WISHES TO GO TO A REHAB FACILITY AFTER DISCHARGE FOR FURTHER PHYSICAL THERAPY. CASE MANAGEMENT IS WORKING ON PLACEMENT FOR PATIENT. TODAY, WE WILL CONTINUE WITH CURRENT PLAN OF CARE. PHYSICAL THERAPY CONTINUES TO WORK WITH PATIENT. WE PLAN TO FOLLOW UP WITH AM LABS AND CONTINUE TO MONITOR PATIENT. - Past Medical Family Social History Past Med/Fam/Surg Hx: No changes since H&P Allergies: Allergies cefazolin [From Ancef] Allergy (Verified 06/26/17 11:15) ciprofloxacin [From Cipro] Allergy (Verified 06/26/17 11:15) levofloxacin [From Levaquin] Allergy (Verified 05/17/17 12:07) bupropion [From Wellbutrin] Adverse Reaction (Verified 05/17/17 12:07) morphine Adverse Reaction (Verified 05/17/17 12:07) promethazine [From Phenergan] Adverse Reaction (Verified 05/17/17 12:07) - Review of Systems ROS: No change since H&P - Vital Signs and I&O's Vital Signs: Temperature 98.0 F Pulse Rate [Left Brachial] 115 Pulse Rate [Right Brachial] 111 Pulse Rate [Apical] 128 Pulse Rate 71 Respiratory Rate 20 Blood Pressure [Left Arm] 123/69 Blood Pressure [Right Arm] 113/59 Blood Pressure 133/59 O2 Sat by Pulse Oximetry 95 Intake and Output: Intake & Output 07/03/17 07/04/17 07/05/17 07/06/17 11:59 11:59 11:59 11:59 Intake Total 3060 1350 2540 610 Balance 3060 1350 2540 610 - Physical Exam Oriented: Normal Eyes: Normal Ear: Normal Nose: Normal Throat: Normal Respiratory: Normal Cardiovascular: Tachycardia : Normal Auscultation: Bowel Sounds: Normal Palpation: Normal Tenderness: Normal Skin: Wound (SURGICAL WOUND WITH NO S/SX INFECTION NOTED ) Musculoskeletal: Right, Hip, Tender, Instability Psychiatric: Normal Mood Description: Calm Affect: Normal Speech Pattern: Clear, Appropriate - Laboratory and Diagnostics Result Diagrams: 07/05/17 04:55 07/05/17 04:55 Labs: 06/29/17 09:50 Blood Blood Culture - Final 06/29/17 09:33 Blood Blood Culture - Final 06/29/17 11:12 Urine,Clean Catch Urine Culture - Final Laboratory WBC 3.9 X10^3/uL (3.6-10.0) 07/05/17 04:55 RBC 2.55 X10^6/uL (3.5-5.4) L 07/05/17 04:55 Hgb 8.0 g/dL (12.0-16.0) L 07/05/17 04:55 Hct 22.4 % (36.0-47.0) L 07/05/17 04:55 MCV 88.0 fL (80.0-100.0) 07/05/17 04:55 MCH 31.4 pg (27.0-34.0) 07/05/17 04:55 MCHC 35.7 g/dL (33.0-35.0) H 07/05/17 04:55 RDW 14.6 % (11.6-16.5) 07/05/17 04:55 Plt Count 282 X10^3/uL (150.0-450.0) 07/05/17 04:55 MPV 7.0 fL (7.4-11.0) L 07/05/17 04:55 Neut % 74.0 % (42.0-75.0) 07/05/17 04:55 Lymph % 15.0 % (21.0-51.0) L 07/05/17 04:55 [place] % 7.8 % (0.0-13.0) 07/05/17 04:55 Eos % 2.8 % (0.9-2.9) 07/05/17 04:55 Baso % 0.4 % (0.2-1.0) 07/05/17 04:55 Neut # 2.9 x10^3/uL (2.2-4.8) 07/05/17 04:55 Lymph # 0.6 X10^3/uL (1.3-2.9) L 07/05/17 04:55 [place] # 0.3 x10^3/uL (0.3-0.8) 07/05/17 04:55 Eos # 0.1 x10^3/uL (0.0-0.2) 07/05/17 04:55 Baso # 0.0 X10^3/uL (0.0-0.1) 07/05/17 04:55 Absolute Nucleated RBC 0.0 /100WBC 07/05/17 04:55 ESR 20 MM/HOUR (0-20) 06/21/17 16:05 INR Target Range - 06/21/17 16:05 INR 0.99 (0.8-1.3) 06/21/17 16:05 PTT 31.6 SECONDS (22.9-36.5) 06/21/17 16:05 PTT Comment - 06/21/17 16:05 Sodium 138 mmol/L (136-145) 07/05/17 04:55 Corrected Sodium TNP 07/05/17 04:55 Potassium 3.7 mmol/L (3.5-5.1) 07/05/17 04:55 Chloride 104 mmol/L (98-107) 07/05/17 04:55 Carbon Dioxide 26.3 mmol/L (21-32) 07/05/17 04:55 BUN 9 mg/dL (7-18) 07/05/17 04:55 Creatinine 0.56 mg/dL (0.55-1.02) 07/05/17 04:55 Est GFR (MDRD) Af Amer > 60 (>60) 07/05/17 04:55 Est GFR (MDRD) Non-Af > 60 (>60) 07/05/17 04:55 Glucose 109 mg/dL (65-99) H 07/05/17 04:55 Calcium 8.9 mg/dL (8.5-10.1) 07/05/17 04:55 Corrected Calcium TNP 07/05/17 04:55 Magnesium 1.9 mg/dL (1.7-2.9) 07/02/17 00:00 Total Bilirubin 1.00 mg/dL (0.2-1.0) 07/05/17 04:55 AST 25 Units/L (15-37) 07/05/17 04:55 ALT 18 Units/L (12-78) 07/05/17 04:55 Alkaline Phosphatase 90 Units/L (46-116) 07/05/17 04:55 C-Reactive Protein 1.40 mg/L (0-3.0) 06/21/17 16:05 Total Protein 6.3 g/dL (6.4-8.2) L 07/05/17 04:55 Albumin 3.4 g/dL (3.4-5.0) 07/05/17 04:55 Globulin 2.9 g/dL (2.5-4.5) 07/05/17 04:55 Albumin/Globulin Ratio 1.2 Ratio (1.1-2.1) 07/05/17 04:55 Specimen Type Clean catch urine 06/21/17 16:05 Urine Color Yellow (YELLOW) 06/21/17 16:05 Urine Appearance Hazy (CLEAR) 06/21/17 16:05 Urine pH 5.0 (5.0 - 8.0) 06/21/17 16:05 Ur Specific [place] 1.025 (1.000-1.030) 06/21/17 16:05 Urine Protein Negative (NEGATIVE) 06/21/17 16:05 Urine Glucose (UA) Negative (NEGATIVE) 06/21/17 16:05 Urine Ketones Negative (NEGATIVE) 06/21/17 16:05 Urine Occult Blood Negative (NEGATIVE) 06/21/17 16:05 Urine Nitrite Negative (NEGATIVE) 06/21/17 16:05 Urine Bilirubin Negative (NEGATIVE) 06/21/17 16:05 Urine Urobilinogen 1+ (NORMAL) 06/21/17 16:05 Ur Leukocyte Esterase 1+ (NEGATIVE) 06/21/17 16:05 Urine RBC 0-2 /HPF (NEGATIVE) 06/21/17 16:05 Urine WBC 3-5 /HPF (NEGATIVE) 06/21/17 16:05 Ur Squamous Epith Cells Rare /HPF (NEGATIVE) 06/21/17 16:05 Urine Bacteria Trace /HPF (NEGATIVE) 06/21/17 16:05 Urine Mucus Few /HPF (NEGATIVE) 06/21/17 16:05 Ur Culture Indicated? No/not indicated 06/21/17 16:05 Vancomycin Trough 11.2 ug/mL (15-20) L 07/03/17 20:42 Staph aureus (PCR) Negative (NEGATIVE) 06/21/17 16:05 MRSA (PCR) Negative (NEGATIVE) 06/21/17 16:05 Blood Type O POSITIVE 06/21/17 16:05 Antibody Screen Negative 06/21/17 16:05 Crossmatch See Detail 06/21/17 16:05 - Plan (1) Status post total hip replacement, right Status: Acute Plan: PT/OT, DILAUDID 1-2MG IV Q4H PRN, ON Q PUMP, CONTINUE TO MONITOR (2) Hypotension Status: Acute Qualifiers: Hypotension type: postprocedural hypotension Qualified Code(s): I95.81 - Postprocedural hypotension Plan: CONTINUE TO MONITOR (3) Linda-prosthetic femur fracture at tip of prosthesis Status: Acute Qualifiers: Encounter type: initial encounter Qualified Code(s): M97.8XXA - Periprosthetic fracture around other internal prosthetic joint, initial encounter; Z96.649 - Presence of unspecified artificial hip joint; Z96.649 - Presence of unspecified artificial hip joint Plan: SURGICAL REPAIR ON MONDAY, CONTINUE TO MONITOR (4) Hypoalbuminemia due to protein-calorie malnutrition Status: Acute Plan: ALBUMIN 25% IV DAILY, CONTINUE TO MONITOR (5) Weakness Status: Acute Plan: ADD MVI TO IV FLUIDS, ALBUMIN 25% IV DAILY, CONTINUE WITH PHYSICAL THERAPY , CONTINUE TO MONITOR
== END 2017-07-05 15:20 | disposition home health service (06) | DRG 470 ==
LOC: MED/SURG 10:22 → ICU 17:45 → MED/SURG 06-28 14:09
PROVIDERS: ADMIT Orthopaedic Surgery; ATTEND Internal Medicine
PROC: 30233N1 Transfusion of Nonautologous Red Blood Cells into Peripheral Vein, Percutaneous Approach (ICD-10-PCS; 2017-06-26)
PROC: 30233N1 Transfusion of Nonautologous Red Blood Cells into Peripheral Vein, Percutaneous Approach (ICD-10-PCS; 2017-06-26)
PROC: 0SR902A Replacement of Right Hip Joint with Metal on Polyethylene Synthetic Substitute, Uncemented, Open Approach (ICD-10-PCS; principal; 2017-06-26 09:00)
PROC: 30233N1 Transfusion of Nonautologous Red Blood Cells into Peripheral Vein, Percutaneous Approach (ICD-10-PCS; 2017-06-27)
DX: M97.8XXA Periprosthetic fracture around other internal prosthetic joint, initial encounter (principal); I95.81 Postprocedural hypotension; Z96.649 Presence of unspecified artificial hip joint; R26.89 Other abnormalities of gait and mobility; E11.65 Type 2 diabetes mellitus with hyperglycemia; I10 Essential (primary) hypertension
CPT/HCPCS: 36415; 36430; 72170; 73501; 73700; 80048; 80053; 80202; 81001; 82565; 83735; 84132; 85014; 85018; 85025; 85610; 85652; 85730; 86140; 86850; 86900; 86901; 86922; 87040; 87086; 87640; 87641; 94640; 97535; A4216; A4222; C9113; P9016; P9047; S0020; S0028; J1200; J1650; J2001; J2060; J2250; J2370; J2405; J3010; J3370; J3480; J3490; J7120; S0077